=== PATIENT | female | born 1935 | race Caucasian/White ===

== ENCOUNTER 2017-10-02 19:42 | Inpatient (IN) | payer MEDICARE, OTHER ==
[2017-10-02] MEDS: morphine 2 MG INJ IV (21:45)
[2017-10-02 21:47] LABS: ABNORMAL IP MESSAGE 1; HEMATOCRIT 21.5 % (37.0-47.0); MEAN CORPUSCULAR HEMOGLOBIN 19.9 pg (29.0-33.0); MEAN CORPUSCULAR HGB CONC 27.4 g/dl (32.0-37.0); MEAN CORPUSCULAR VOLUME 72.6 fl (82.0-101.0); MEAN PLATELET VOLUME 9.2 fl (7.4-10.4); PLATELET COUNT 477 10^3/UL (140-415); RED BLOOD COUNT 2.96 10^6/ul (4.20-5.40); RED CELL DISTRIBUTION WIDTH 17.3 % (11.5-14.5)
[2017-10-02 21:47] LABS: WHITE BLOOD COUNT 6.8 10^3/ul (4.8-10.8)
[2017-10-02 21:49] LABS: ADD UMIC NO; UR ASCORBIC ACID NEGATIVE (NEGATIVE); UR BILIRUBIN (Dip) NEGATIVE (NEGATIVE); UR BLOOD (Dip) NEGATIVE (NEGATIVE); UR CLARITY CLEAR (CLEAR); UR COLOR STRAW (YELLOW); UR GLUCOSE (Dip) NEGATIVE (NEGATIVE); UR KETONES (Dip) NEGATIVE (NEGATIVE); UR LEUKOCYTE ESTERASE (Dip) NEGATIVE Leu/ul (NEGATIVE); UR NITRITE (Dip) NEGATIVE (NEGATIVE); UR SPECIFIC GRAVITY (Dip) 1.005 (1.003-1.030); UR TOTAL PROTEIN (Dip) NEGATIVE (NEGATIVE); UR UROBILINOGEN (Dip) NEGATIVE (NEGATIVE)
[2017-10-02 21:51] LABS: ADD MAN DIFF? YES; HEMOGLOBIN 5.9 g/dl (12.0-16.0); POSITIVE DIFF @See below
[2017-10-02 22:04] LABS: ALANINE AMINOTRANSFERASE 25 IU/L (13-69); ALBUMIN 3.9 g/dl (3.3-4.9); ALBUMIN/GLOBULIN RATIO 1.34; ALKALINE PHOSPHATASE 68 IU/L (42-121); ANION GAP 12 (8-16); ASPARTATE AMINO TRANSFERASE 26 IU/L (15-46); BILIRUBIN,INDIRECT 0.2 mg/dl (0-1.1); BILIRUBIN,TOTAL 0.2 mg/dl (0.2-1.3); BLOOD UREA NITROGEN 30 mg/dl (7-20); CALCIUM 8.9 mg/dl (8.4-10.2); CARBON DIOXIDE 30 mmol/L (21-31); CHLORIDE 98 mmol/L (97-110); CREATININE 1.16 mg/dl (0.44-1.00); GLUCOSE 94 mg/dl (70-220); SODIUM 137 mmol/L (135-144); TOTAL PROTEIN 6.8 g/dl (6.1-8.1)
[2017-10-02 22:05] LABS: POTASSIUM 2.7 mmol/L (3.5-5.1)
[2017-10-02 22:16] LABS: TROPONIN-I 0.027 ng/ml (0.000-0.120)
[2017-10-02] MEDS ORDERED: NACL 0.9% 3 ML SYG IV (22:30)
[2017-10-02] MEDS ORDERED: ONDANSETRON 4 MG INJ IV ×2 (22:30)
[2017-10-02] MEDS ORDERED: ACETAMINOPHEN 325 MG TAB PO (22:30)
[2017-10-02] MEDS ORDERED: DOCUSATE SODIUM 100 MG CAP PO (22:30)
[2017-10-02] MEDS: MAGNESIUM SULFATE 2 GM/50 ML 50 ML IVPB (22:31)
[2017-10-02] MEDS: POTASSIUM CHLORIDE 100 ML IVPB (22:59)
[2017-10-02 23:07] LABS: ANISOCYTOSIS 1+ (0-0); BASOPHIL #M 0.2 10^3/ul (0.0-0.0); BASOPHILS % (M) 3 % (0-2); EOSINOPHILS % (M) 2 % (0-7); ERYTHROBLAST% (NRBC) (M) 1 % (0-0); GIANT THROMBO% (M) 1 % (0-0); HYPOCHROMASIA 2+ (0-0); LYMPHOCYTES #M 1.3 10^3/ul (0.8-2.9); LYMPHOCYTES % (M) 20 % (15-51); MICROCYTOSIS 1+ (0-0); MONOCYTE #M 0.4 10^3/ul (0.3-0.9); MONOCYTES % (M) 6 % (0-11); PLATELET ESTIMATE NORMAL; SEGMENTED NEUTROPHILS (M) % 69 % (39-77); SMUDGE%M 1 % (0-0)
[2017-10-02 23:40] LABS: CREATINE KINASE 271 IU/L (23-200); IRON 31 ug/dl (35-150)
[2017-10-02 23:50] LABS: % IRON SATURATION 9 % SAT (22-52); TOTAL IRON BINDING CAPACITY 364 ug/dl (241-421)
[2017-10-02 23:53] LABS: CK INDEX 2.1; TROPONIN-I 0.029 ng/ml (0.000-0.120)
[2017-10-03] MEDS: SOD CHLORIDE 0.9% 250 ML IV (00:25)
[2017-10-03 00:28] LABS: OSMOLALITY 289 mOsm/kg (280-295)
[2017-10-03] MEDS: HYDROCODONE/APAP (5/325) TAB PO ×2 (00:34→15:41)
[2017-10-03] MEDS: POTASSIUM CHLORIDE 100 ML IVPB ×2 (00:36→02:31)
[2017-10-03 01:41] LABS: IMMEDIATE SPIN CROSSMATCH 1 2
[2017-10-03 05:33] LABS: ADD MAN DIFF? NO; BASOPHIL # 0.1 10^3/ul (0.0-0.1); BASOPHILS % 0.8 % (0.0-2.0); EOSINOPHILS # 0.2 10^3/ul (0.0-0.5); EOSINOPHILS % 3.7 % (0.0-7.0); HEMATOCRIT 29.9 % (37.0-47.0); HEMOGLOBIN 9.2 g/dl (12.0-16.0); LYMPHOCYTES % 16.4 % (15.0-51.0); MEAN CORPUSCULAR HEMOGLOBIN 23.7 pg (29.0-33.0); MEAN CORPUSCULAR HGB CONC 30.8 g/dl (32.0-37.0); MEAN CORPUSCULAR VOLUME 76.9 fl (82.0-101.0); MEAN PLATELET VOLUME 9.4 fl (7.4-10.4); MONOCYTE # 0.6 10^3/ul (0.3-0.9); MONOCYTES % 10.5 % (0.0-11.0); NEUTROPHIL # 4.1 10^3/ul (1.6-7.5); NEUTROPHILS % 68.4 % (39.0-77.0); PLATELET COUNT 405 10^3/UL (140-415); RED BLOOD COUNT 3.89 10^6/ul (4.20-5.40); RED CELL DISTRIBUTION WIDTH 18.3 % (11.5-14.5)
[2017-10-03 05:52] LABS: CREATINE KINASE 268 IU/L (23-200)
[2017-10-03 06:02] LABS: ALANINE AMINOTRANSFERASE 20 IU/L (13-69); ALKALINE PHOSPHATASE 57 IU/L (42-121); ANION GAP 9 (8-16); ASPARTATE AMINO TRANSFERASE 22 IU/L (15-46); BLOOD UREA NITROGEN 24 mg/dl (7-20); CALCIUM 7.9 mg/dl (8.4-10.2); CARBON DIOXIDE 28 mmol/L (21-31); CHLORIDE 108 mmol/L (97-110); CHOL/HDL RATIO 2.3 RATIO; CHOLESTEROL 156 mg/dl (100-200); CREATININE 0.93 mg/dl (0.44-1.00); GLUCOSE 93 mg/dl (70-220); HDL CHOLESTEROL 67 mg/dl (33-92); LDL CHOLESTEROL,CALCULATED 75 mg/dl; MAGNESIUM 1.8 mg/dl (1.7-2.5); POTASSIUM 3.6 mmol/L (3.5-5.1); SODIUM 141 mmol/L (135-144); TOTAL PROTEIN 5.3 g/dl (6.1-8.1); TRIGLYCERIDES 68 mg/dl (0-149)
[2017-10-03 06:05] LABS: CK INDEX 1.9; CK-MB 5.13 ng/ml (0.0-2.4); TROPONIN-I 0.036 ng/ml (0.000-0.120)
[2017-10-03 08:25] LABS: HEMOGLOBIN A1C 5.9 % (0-5.9)
[2017-10-03] MEDS: DULOXETINE 30 MG CAP DR PO ×2 (09:39→20:36)
[2017-10-03 11:35] LABS: ADD UMIC YES; UR ASCORBIC ACID NEGATIVE (NEGATIVE); UR BACTERIA FEW /HPF (NONE SEEN); UR BILIRUBIN (Dip) NEGATIVE (NEGATIVE); UR BLOOD (Dip) 1+ mg/dL (NEGATIVE); UR CLARITY CLEAR (CLEAR); UR COLOR STRAW (YELLOW); UR GLUCOSE (Dip) NEGATIVE (NEGATIVE); UR KETONES (Dip) NEGATIVE (NEGATIVE); UR LEUKOCYTE ESTERASE (Dip) NEGATIVE Leu/ul (NEGATIVE); UR NITRITE (Dip) NEGATIVE (NEGATIVE); UR RBC 0 /HPF (0-5); UR SPECIFIC GRAVITY (Dip) 1.008 (1.003-1.030); UR TOTAL PROTEIN (Dip) NEGATIVE (NEGATIVE); UR UROBILINOGEN (Dip) NEGATIVE (NEGATIVE); UR WBC 1 /HPF (0-5)
[2017-10-03 11:49] LABS: SODIUM,URINE RANDOM 78 mmol/L (30-90)
[2017-10-03] MEDS: LACTULOSE 30ML CUP PO ×5 (12:31→23:17)
[2017-10-03 14:54] LABS: OSMOLALITY,URINE 317 mOsm/kg (250-1200)
[2017-10-03 16:21] LABS: OCCULT BLOOD STOOL NEGATIVE (NEGATIVE)
[2017-10-03] MEDS: SOD FERRIC GLUC COMPLX 125 MG in SOD CHLORIDE 0.9% 100 ML IVPB (17:19)
[2017-10-03] MEDS: PANTOPRAZOLE 40 MG INJ IV (17:20)
[2017-10-03] MEDS: ACETAMINOPHEN 325 MG TAB PO (20:36)
[2017-10-03] MEDS: PEG/ELECTROLYTES 4L BTL PO (21:19)
[2017-10-04] MEDS: HYDROCODONE/APAP (5/325) TAB PO ×3 (00:29→20:21)
[2017-10-04] MEDS: LACTULOSE 30ML CUP PO ×7 (03:00→20:21)
[2017-10-04] MEDS: PANTOPRAZOLE 40 MG INJ IV ×2 (06:44→18:18)
[2017-10-04] MEDS: DULOXETINE 30 MG CAP DR PO ×2 (08:36→20:20)
[2017-10-04 09:31] LABS: ADD MAN DIFF? NO
[2017-10-04 09:35] LABS: ABNORMAL IP MESSAGE 1; BASOPHIL # 0.1 10^3/ul (0.0-0.1); BASOPHILS % 0.6 % (0.0-2.0); EOSINOPHILS # 0.1 10^3/ul (0.0-0.5); EOSINOPHILS % 0.6 % (0.0-7.0); HEMATOCRIT 32.3 % (37.0-47.0); HEMOGLOBIN 9.4 g/dl (12.0-16.0); LYMPHOCYTES # 0.5 10^3/ul (0.8-2.9); LYMPHOCYTES % 5.5 % (15.0-51.0); MEAN CORPUSCULAR HGB CONC 29.1 g/dl (32.0-37.0); MEAN CORPUSCULAR VOLUME 79.2 fl (82.0-101.0); MEAN PLATELET VOLUME 9.7 fl (7.4-10.4); MONOCYTE # 0.7 10^3/ul (0.3-0.9); MONOCYTES % 6.9 % (0.0-11.0); NEUTROPHIL # 8.4 10^3/ul (1.6-7.5); PLATELET COUNT 453 10^3/UL (140-415); RED BLOOD COUNT 4.08 10^6/ul (4.20-5.40); RED CELL DISTRIBUTION WIDTH 18.6 % (11.5-14.5)
[2017-10-04 09:35] LABS: WHITE BLOOD COUNT 9.7 10^3/ul (4.8-10.8)
[2017-10-04 09:40] LABS: POSITIVE DIFF @See below
[2017-10-04 09:54] LABS: ANION GAP 10 (8-16); BLOOD UREA NITROGEN 10 mg/dl (7-20); CALCIUM 8.2 mg/dl (8.4-10.2); CARBON DIOXIDE 27 mmol/L (21-31); CHLORIDE 112 mmol/L (97-110); CREATININE 0.73 mg/dl (0.44-1.00); GLUCOSE 144 mg/dl (70-220); SODIUM 146 mmol/L (135-144)
[2017-10-04] MEDS: LORAZEPAM 2 MG INJ IV (11:15)
[2017-10-04] MEDS ORDERED: POTASSIUM CHLORIDE 100 ML IVPB (11:30)
[2017-10-04] MEDS: POTASSIUM CHLORIDE 100 ML IVPB ×2 (12:30→15:54)
[2017-10-04] MEDS ORDERED: GLUCOSE GEL 15 GRAM TUBE PO ×2 (13:00)
[2017-10-04] MEDS ORDERED: GLUCAGON 1 MG INJ IM (13:00)
[2017-10-04] MEDS ORDERED: GLUCOSE GEL 15 GRAM TUBE BUCCAL (13:00)
[2017-10-04] MEDS: ETOMIDATE 20 MG INJ (14:23)
[2017-10-04] MEDS: PHENYLephrine (100 MCG/ML) 5ML SYG (14:23)
[2017-10-04 16:15] LABS: INR 1.08; PROTIME 14.1 Sec (11.9-14.9); PT RATIO 1.1
[2017-10-04 16:16] LABS: PARTIAL THROMBOPLASTIN TIME 43.4 Sec (25.0-35.0)
[2017-10-04] MEDS: SOD FERRIC GLUC COMPLX 125 MG in SOD CHLORIDE 0.9% 100 ML IVPB (17:00)
[2017-10-04] MEDS: INSULIN ASPART [NOVOLOG] 3 ML PEN SC ×2 (18:05→20:31)
[2017-10-04] MEDS: ALBUTEROL 0.083% (NEB) 2.5 MG/3 ML AMP HHN (18:35)
[2017-10-04] MEDS: ALPRAZOLAM 0.25 MG TAB PO (21:25)
[2017-10-04] MEDS: ACETAMINOPHEN 325 MG TAB PO (23:06)
[2017-10-05] MEDS: ACCU-CHEK XX ×2 (02:00→02:15)
[2017-10-05] MEDS: HYDROCODONE/APAP (5/325) TAB PO ×2 (02:07→10:24)
[2017-10-05] MEDS: ALBUTEROL 0.083% (NEB) 2.5 MG/3 ML AMP HHN ×3 (02:22→09:25)
[2017-10-05] MEDS: LACTULOSE 30ML CUP PO ×8 (02:38→21:54)
[2017-10-05] MEDS: PANTOPRAZOLE 40 MG INJ IV (06:04)
[2017-10-05] MEDS: INSULIN ASPART [NOVOLOG] 3 ML PEN SC ×4 (08:00→22:14)
[2017-10-05] MEDS: DULOXETINE 30 MG CAP DR PO ×2 (08:43→21:55)
[2017-10-05 09:48] LABS: ADD MAN DIFF? NO
[2017-10-05 09:53] LABS: WHITE BLOOD COUNT 10.2 10^3/ul (4.8-10.8)
[2017-10-05 09:53] LABS: ABNORMAL IP MESSAGE 1; BASOPHILS % 0.4 % (0.0-2.0); EOSINOPHILS % 0.3 % (0.0-7.0); HEMATOCRIT 29.1 % (37.0-47.0); HEMOGLOBIN 8.6 g/dl (12.0-16.0); LYMPHOCYTES # 0.4 10^3/ul (0.8-2.9); LYMPHOCYTES % 4.1 % (15.0-51.0); MEAN CORPUSCULAR HEMOGLOBIN 23.7 pg (29.0-33.0); MEAN CORPUSCULAR HGB CONC 29.6 g/dl (32.0-37.0); MEAN CORPUSCULAR VOLUME 80.2 fl (82.0-101.0); MEAN PLATELET VOLUME 9.6 fl (7.4-10.4); MONOCYTE # 0.7 10^3/ul (0.3-0.9); MONOCYTES % 7.3 % (0.0-11.0); NEUTROPHIL # 8.9 10^3/ul (1.6-7.5); NEUTROPHILS % 87.4 % (39.0-77.0); PLATELET COUNT 400 10^3/UL (140-415); RED BLOOD COUNT 3.63 10^6/ul (4.20-5.40); RED CELL DISTRIBUTION WIDTH 19.2 % (11.5-14.5)
[2017-10-05 10:03] LABS: POSITIVE DIFF @See below
[2017-10-05 10:14] LABS: ANION GAP 11 (8-16); BLOOD UREA NITROGEN 7 mg/dl (7-20); CARBON DIOXIDE 28 mmol/L (21-31); CHLORIDE 105 mmol/L (97-110); CREATININE 0.62 mg/dl (0.44-1.00); SODIUM 141 mmol/L (135-144)
[2017-10-05 10:16] LABS: MAGNESIUM 1.5 mg/dl (1.7-2.5)
[2017-10-05 10:30] LABS: GLUCOSE 135 mg/dl (70-220); POTASSIUM 2.9 mmol/L (3.5-5.1)
[2017-10-05] MEDS: ALBUTEROL/IPRATROPIUM (NEB) 3 ML AMP HHN ×4 (10:59→21:09)
[2017-10-05] MEDS ORDERED: MAGNESIUM SULFATE 3 GM in DEXTROSE 5% 100 ML IVPB (11:00)
[2017-10-05 11:44] LABS: AADO2 Arterial 110.4 mmHg (7.0-24.0); Allen Test ACCEPTAB; Arterial Blood Gas Oxygen Sat 96.3 mmHG (95.0-100.0); Arterial COHb 0.5 % (0.0-3.0); Arterial Fraction of Oxyhgb 95.8 % (93.0-99.0); Arterial HCO3 20.4 mmol/L (22.0-26.0); Arterial MetHb 0 % (0.0-1.5); Arterial Total Hemglobin 10.3 g/dl (12.0-18.0); MODE NASAL CANNULA; Site Left Radial
[2017-10-05] MEDS: POTASSIUM CHLORIDE (SR) 20 MEQ TAB PO ×2 (11:45→15:13)
[2017-10-05] MEDS: MAG SULFATE 2GM IN 50 ML IVPB (11:46)
[2017-10-05] MEDS: METHYLPREDNISOLONE 125 MG INJ IV (12:08)
[2017-10-05] MEDS: LEVOFLOXACIN 500 MG TAB PO (12:08)
[2017-10-05] MEDS: SOD CHLORIDE 0.9% 100 ML (13:51)
[2017-10-05] MEDS: IOHEXOL 300MG/ML 150 ML BTL (13:51)
[2017-10-05 14:30] LABS: C-REACTIVE PROTEIN 8.2 mg/dl (0.0-0.9)
[2017-10-05] MEDS: MAGNESIUM SULFATE 1 GM/D5W 100 ML IVPB (15:13)
[2017-10-05 15:24] LABS: ERYTHROCYTE SEDIMENTATION RATE 30 mm/Hr (0-30)
[2017-10-05] MEDS: SOD FERRIC GLUC COMPLX 125 MG in SOD CHLORIDE 0.9% 100 ML IVPB (17:39)
[2017-10-05] MEDS: PANTOPRAZOLE (EC) 40 MG TAB PO (17:39)
[2017-10-05] MEDS: traZODone 50 MG TAB PO (21:55)
[2017-10-06] MEDS: ALBUTEROL/IPRATROPIUM (NEB) 3 ML AMP HHN ×5 (00:56→17:08)
[2017-10-06] MEDS: ACCU-CHEK XX (01:55)
[2017-10-06] MEDS: LACTULOSE 30ML CUP PO ×8 (03:00→21:00)
[2017-10-06] MEDS: PANTOPRAZOLE (EC) 40 MG TAB PO ×2 (06:17→17:24)
[2017-10-06] MEDS ORDERED: ETOMIDATE 20 MG INJ (07:00)
[2017-10-06] MEDS ORDERED: SUCCINYLCHOLINE CHLORIDE 100 MG/5 ML SYG IV (07:00)
[2017-10-06] MEDS ORDERED: ROCURONIUM 50 MG INJ (07:00)
[2017-10-06 07:49] LABS: ANION GAP 11 (8-16); BLOOD UREA NITROGEN 11 mg/dl (7-20); CALCIUM 8.6 mg/dl (8.4-10.2); CARBON DIOXIDE 24 mmol/L (21-31); CHLORIDE 111 mmol/L (97-110); CREATININE 0.71 mg/dl (0.44-1.00); GLUCOSE 131 mg/dl (70-220); MAGNESIUM 2.5 mg/dl (1.7-2.5); POTASSIUM 3.5 mmol/L (3.5-5.1); SODIUM 142 mmol/L (135-144)
[2017-10-06] MEDS: INSULIN ASPART [NOVOLOG] 3 ML PEN SC ×4 (08:00→21:00)
[2017-10-06] MEDS: DULOXETINE 30 MG CAP DR PO ×2 (08:34→21:00)
[2017-10-06] MEDS: INSULIN GLARGINE [LANtus] 3 ML PEN SC (12:31)
[2017-10-06] MEDS: HYDROCODONE/APAP (5/325) TAB PO (12:36)
[2017-10-06] MEDS: morphine 2 MG INJ IV (13:37)
[2017-10-06] MEDS: DILTIAZEM (CD) 120 MG CAP PO (13:38)
[2017-10-06] MEDS ORDERED: morphine 2 MG INJ IV (14:00)
[2017-10-06 14:39] LABS: ADD MAN DIFF? NO
[2017-10-06 14:43] LABS: ABNORMAL IP MESSAGE 1; BASOPHILS % 0.2 % (0.0-2.0); EOSINOPHILS # 0.1 10^3/ul (0.0-0.5); EOSINOPHILS % 0.6 % (0.0-7.0); HEMATOCRIT 30.5 % (37.0-47.0); HEMOGLOBIN 8.8 g/dl (12.0-16.0); LYMPHOCYTES # 0.3 10^3/ul (0.8-2.9); MEAN CORPUSCULAR HEMOGLOBIN 23.5 pg (29.0-33.0); MEAN CORPUSCULAR HGB CONC 28.9 g/dl (32.0-37.0); MEAN CORPUSCULAR VOLUME 81.3 fl (82.0-101.0); MEAN PLATELET VOLUME 9.2 fl (7.4-10.4); MONOCYTE # 0.6 10^3/ul (0.3-0.9); MONOCYTES % 5.5 % (0.0-11.0); NEUTROPHIL # 9.8 10^3/ul (1.6-7.5); NEUTROPHILS % 90.2 % (39.0-77.0); NUCLEATED RED BLOOD CELLS% 0.2 /100WBC (0.0-0.0); PLATELET COUNT 391 10^3/UL (140-415); RED BLOOD COUNT 3.75 10^6/ul (4.20-5.40); RED CELL DISTRIBUTION WIDTH 21.2 % (11.5-14.5)
[2017-10-06 14:43] LABS: WHITE BLOOD COUNT 10.8 10^3/ul (4.8-10.8)
[2017-10-06 15:00] LABS: ANION GAP 12 (8-16); BLOOD UREA NITROGEN 10 mg/dl (7-20); CALCIUM 8.7 mg/dl (8.4-10.2); CARBON DIOXIDE 24 mmol/L (21-31); CHLORIDE 109 mmol/L (97-110); CREATININE 0.76 mg/dl (0.44-1.00); GLUCOSE 91 mg/dl (70-220); POTASSIUM 3.7 mmol/L (3.5-5.1); SODIUM 141 mmol/L (135-144)
[2017-10-06 15:04] LABS: LIPASE 94 U/L (23-300)
[2017-10-06] MEDS: SOD CHLORIDE 0.9% 500 ML IV (15:31)
[2017-10-06] MEDS: IOHEXOL 300MG/ML 150 ML BTL (16:11)
[2017-10-06] MEDS: SOD CHLORIDE 0.9% 100 ML (16:11)
[2017-10-06] MEDS: SOD FERRIC GLUC COMPLX 125 MG in SOD CHLORIDE 0.9% 100 ML IVPB (17:05)
[2017-10-06] MEDS: NA PHOSPHATE/BIPHOS 133 ML ENEMA PR (17:24)
[2017-10-06] MEDS: FUROSEMIDE 20 MG INJ IV ×3 (17:24→19:00)
[2017-10-06] MEDS: DEXTROSE 50% 50 ML SYRINGE IV (17:39)
[2017-10-06] MEDS ORDERED: METOPROLOL 5 MG INJ (17:52)
[2017-10-06] MEDS: METOPROLOL 5 MG INJ IV (17:55)
[2017-10-06] MEDS: LORAZEPAM 2 MG INJ IV (18:31)
[2017-10-06] MEDS: LEVALBUTEROL (NEB) 0.63 MG/3 ML AMP HHN (18:55)
[2017-10-06] MEDS ORDERED: PROPOFOL 100 ML (19:47)
[2017-10-06] MEDS: PROPOFOL 100 ML IV (20:02)
[2017-10-06 20:45] LABS: AADO2 Arterial 291.1 mmHg (7.0-24.0); Allen Test ACCEPTAB; Arterial Base Excess -5.3 mmol/L (-3.0-3); Arterial Blood Gas Oxygen Sat 99.8 mmHG (95.0-100.0); Arterial COHb 0.6 % (0.0-3.0); Arterial Fraction of Oxyhgb 99.1 % (93.0-99.0); Arterial HCO3 20.2 mmol/L (22.0-26.0); Arterial MetHb 0.1 % (0.0-1.5); Arterial Total Hemglobin 9.5 g/dl (12.0-18.0); Arterial pCO2 39.7 mmhg (35-45); MODE VENT - AC; Site Right Radial
[2017-10-06] MEDS: traZODone 50 MG TAB PO (21:00)
[2017-10-06] MEDS: SENNA TAB PO (21:00)
[2017-10-06] MEDS: ALBUTEROL HFA 8 GM INHALER INH (21:09)
[2017-10-06] MEDS: FENTAnyl (DRIP) 1000 mcg/100mL 100 ML IV (22:14)
[2017-10-06] MEDS: PANTOPRAZOLE 40 MG INJ IV (23:39)
[2017-10-07] MEDS: PROPOFOL 100 ML IV ×4 (01:42→22:13)
[2017-10-07] MEDS: ALBUTEROL HFA 8 GM INHALER INH ×6 (02:00→21:26)
[2017-10-07] MEDS: ACCU-CHEK XX (02:12)
[2017-10-07] MEDS: LACTULOSE 30ML CUP PO ×8 (03:00→20:35)
[2017-10-07 05:25] LABS: ADD MAN DIFF? NO
[2017-10-07 05:31] LABS: WHITE BLOOD COUNT 9.6 10^3/ul (4.8-10.8)
[2017-10-07 05:31] LABS: ABNORMAL IP MESSAGE 1; BASOPHILS % 0.2 % (0.0-2.0); EOSINOPHILS # 0.1 10^3/ul (0.0-0.5); EOSINOPHILS % 1.5 % (0.0-7.0); HEMATOCRIT 28.4 % (37.0-47.0); HEMOGLOBIN 8.2 g/dl (12.0-16.0); LYMPHOCYTES # 0.5 10^3/ul (0.8-2.9); MEAN CORPUSCULAR HEMOGLOBIN 23.2 pg (29.0-33.0); MEAN CORPUSCULAR HGB CONC 28.9 g/dl (32.0-37.0); MEAN CORPUSCULAR VOLUME 80.5 fl (82.0-101.0); MEAN PLATELET VOLUME 9.7 fl (7.4-10.4); MONOCYTE # 0.5 10^3/ul (0.3-0.9); MONOCYTES % 4.8 % (0.0-11.0); NEUTROPHIL # 8.4 10^3/ul (1.6-7.5); PLATELET COUNT 383 10^3/UL (140-415); RED BLOOD COUNT 3.53 10^6/ul (4.20-5.40); RED CELL DISTRIBUTION WIDTH 21.8 % (11.5-14.5)
[2017-10-07 05:40] LABS: POSITIVE DIFF @See below
[2017-10-07] MEDS: LEVOFLOXACIN 500 MG TAB PO (06:00)
[2017-10-07 06:02] LABS: ANION GAP 9 (8-16); BLOOD UREA NITROGEN 10 mg/dl (7-20); CALCIUM 8.1 mg/dl (8.4-10.2); CARBON DIOXIDE 27 mmol/L (21-31); CHLORIDE 109 mmol/L (97-110); CREATININE 0.78 mg/dl (0.44-1.00); GLUCOSE 80 mg/dl (70-220); POTASSIUM 3.3 mmol/L (3.5-5.1); SODIUM 142 mmol/L (135-144)
[2017-10-07] MEDS: PANTOPRAZOLE 40 MG INJ IV (06:04)
[2017-10-07] MEDS: INSULIN ASPART [NOVOLOG] 3 ML PEN SC ×4 (07:35→20:37)
[2017-10-07] MEDS ORDERED: POTASSIUM CHLORIDE 20 MEQ POWDER FOR ORAL SOLN PO (09:00)
[2017-10-07] MEDS: SENNA TAB PO ×2 (09:36→20:35)
[2017-10-07] MEDS: DULOXETINE 30 MG CAP DR PO ×2 (09:37→20:34)
[2017-10-07] MEDS: DILTIAZEM (CD) 120 MG CAP PO (09:37)
[2017-10-07] MEDS: METOCLOPRAMIDE 5 MG TAB PO (09:37)
[2017-10-07] MEDS: INSULIN GLARGINE [LANtus] 3 ML PEN SC (10:00)
[2017-10-07] MEDS: FENTAnyl (DRIP) 1000 mcg/100mL 100 ML IV (16:02)
[2017-10-07] MEDS: SOD FERRIC GLUC COMPLX 125 MG in SOD CHLORIDE 0.9% 100 ML IVPB (17:57)
[2017-10-07] MEDS: DEXTROSE 50% 50 ML SYRINGE IV (18:07)
[2017-10-07] MEDS: traZODone 50 MG TAB PO (20:35)
[2017-10-07] MEDS ORDERED: morphine LIQ (10 MG/5 ML) CUP PO (21:30)
[2017-10-07] MEDS: DEXTROSE 5%-0.45% NACL 1,000 ML IV (22:13)
[2017-10-08] MEDS: ALBUTEROL HFA 8 GM INHALER INH ×5 (01:34→12:52)
[2017-10-08] MEDS: DEXTROSE 50% 50 ML SYRINGE IV ×4 (01:56→20:48)
[2017-10-08] MEDS: ACCU-CHEK XX (01:56)
[2017-10-08] MEDS: LACTULOSE 30ML CUP PO ×5 (02:49→12:19)
[2017-10-08] MEDS: INSULIN ASPART [NOVOLOG] 3 ML PEN SC ×5 (05:00→20:41)
[2017-10-08 05:03] LABS: AADO2 Arterial 77.9 mmHg (7.0-24.0); Allen Test ACCEPTAB; Arterial Base Excess -0.6 mmol/L (-3.0-3); Arterial Blood Gas Oxygen Sat 97.9 mmHG (95.0-100.0); Arterial COHb 1.6 % (0.0-3.0); Arterial Fraction of Oxyhgb 96.2 % (93.0-99.0); Arterial HCO3 23.1 mmol/L (22.0-26.0); Arterial MetHb 0.1 % (0.0-1.5); Arterial Total Hemglobin 7.7 g/dl (12.0-18.0); Arterial pCO2 33.7 mmhg (35-45); MODE VENT - AC; Site Right Radial
[2017-10-08 05:18] LABS: ADD MAN DIFF? NO
[2017-10-08 05:22] LABS: WHITE BLOOD COUNT 5.8 10^3/ul (4.8-10.8)
[2017-10-08 05:22] LABS: ABNORMAL IP MESSAGE 1; BASOPHILS % 0.3 % (0.0-2.0); EOSINOPHILS # 0.2 10^3/ul (0.0-0.5); HEMATOCRIT 28.6 % (37.0-47.0); HEMOGLOBIN 8.3 g/dl (12.0-16.0); LYMPHOCYTES # 0.4 10^3/ul (0.8-2.9); LYMPHOCYTES % 7.1 % (15.0-51.0); MEAN CORPUSCULAR HEMOGLOBIN 23.2 pg (29.0-33.0); MEAN CORPUSCULAR VOLUME 79.9 fl (82.0-101.0); MEAN PLATELET VOLUME 9.8 fl (7.4-10.4); MONOCYTE # 0.3 10^3/ul (0.3-0.9); MONOCYTES % 5.4 % (0.0-11.0); NEUTROPHIL # 4.8 10^3/ul (1.6-7.5); NEUTROPHILS % 83.9 % (39.0-77.0); PLATELET COUNT 353 10^3/UL (140-415); RED BLOOD COUNT 3.58 10^6/ul (4.20-5.40); RED CELL DISTRIBUTION WIDTH 22.5 % (11.5-14.5)
[2017-10-08 05:29] LABS: POSITIVE DIFF @See below
[2017-10-08 05:43] LABS: LACTIC ACID 0.9 mmol/L (0.5-2.0)
[2017-10-08 05:47] LABS: ALANINE AMINOTRANSFERASE 30 IU/L (13-69); ALBUMIN 2.6 g/dl (3.3-4.9); ALBUMIN/GLOBULIN RATIO 1.04; ALKALINE PHOSPHATASE 64 IU/L (42-121); ANION GAP 5 (8-16); ASPARTATE AMINO TRANSFERASE 19 IU/L (15-46); BILIRUBIN,INDIRECT 0.1 mg/dl (0-1.1); BILIRUBIN,TOTAL 0.1 mg/dl (0.2-1.3); BLOOD UREA NITROGEN 10 mg/dl (7-20); CALCIUM 7.8 mg/dl (8.4-10.2); CARBON DIOXIDE 25 mmol/L (21-31); CHLORIDE 114 mmol/L (97-110); CREATININE 0.74 mg/dl (0.44-1.00); GLUCOSE 107 mg/dl (70-220); POTASSIUM 3.3 mmol/L (3.5-5.1); SODIUM 141 mmol/L (135-144); TOTAL PROTEIN 5.1 g/dl (6.1-8.1)
[2017-10-08] MEDS: PANTOPRAZOLE 40 MG INJ IV (05:56)
[2017-10-08 06:03] LABS: FREE THYROXINE INDEX (Calc) 2.75 ug/ml (0.65-3.89); T3 UPTAKE 39.9 % (23.5-40.5); T4 (THYROXINE) 6.9 ug/dl (5.5-11.0)
[2017-10-08 06:04] LABS: PHOSPHORUS 1.8 mg/dl (2.5-4.9)
[2017-10-08 06:04] LABS: MAGNESIUM 1.9 mg/dl (1.7-2.5)
[2017-10-08] MEDS: METOCLOPRAMIDE 5 MG TAB PO (06:05)
[2017-10-08] MEDS: PROPOFOL 100 ML IV (06:13)
[2017-10-08] MEDS: DULOXETINE 30 MG CAP DR PO ×2 (08:35→20:41)
[2017-10-08] MEDS: DILTIAZEM (CD) 120 MG CAP PO (08:37)
[2017-10-08] MEDS: SENNA TAB PO ×2 (08:38→20:41)
[2017-10-08] MEDS: INSULIN GLARGINE [LANtus] 3 ML PEN SC (08:48)
[2017-10-08] MEDS: POTASSIUM PHOSPHATE 20 MEQ in SOD CHLORIDE 0.9% 250 ML IVPB (09:24)
[2017-10-08] MEDS: POTASSIUM CHLORIDE 20 MEQ POWDER FOR ORAL SOLN PO (09:24)
[2017-10-08] MEDS: LIDOCAINE 1% (MDV) 10 ML INJ (10:28)
[2017-10-08 11:25] LABS: FLUID GLUCOSE 95 mg/dl; FLUID TYPE THORACENTESIS FLUID
[2017-10-08 11:36] LABS: FLD TYPE THORACENTHESIS
[2017-10-08 11:36] LABS: FLD CLARITY SLIGHTLY HAZY; FLD COLOR YELLOW
[2017-10-08 11:37] LABS: FLD RBC 0 /uL
[2017-10-08 12:04] LABS: FLD WBC 237 /cmm
[2017-10-08] MEDS: FUROSEMIDE 20 MG INJ IV (12:19)
[2017-10-08] MEDS: ALBUTEROL 0.083% (NEB) 2.5 MG/3 ML AMP HHN ×2 (17:00→20:15)
[2017-10-08] MEDS: traZODone 50 MG TAB PO (20:40)
[2017-10-08] MEDS: DEXTROSE 5%-0.45% NACL 1,000 ML IV (22:00)
[2017-10-08 23:25] LABS: FLUID AMYLASE < 30 U/L; FLUID TOTAL PROTEIN 2.4 g/dl; FLUID TYPE THORACENTESIS FLUID
[2017-10-09] MEDS: INSULIN ASPART [NOVOLOG] 3 ML PEN SC ×6 (00:44→20:32)
[2017-10-09] MEDS: ALBUTEROL 0.083% (NEB) 2.5 MG/3 ML AMP HHN ×6 (01:00→21:27)
[2017-10-09] MEDS: DEXTROSE 5%-0.45% NACL 1,000 ML IV (02:12)
[2017-10-09 05:29] LABS: ADD MAN DIFF? NO
[2017-10-09 05:45] LABS: ABNORMAL IP MESSAGE 1; BASOPHILS % 0.5 % (0.0-2.0); EOSINOPHILS # 0.1 10^3/ul (0.0-0.5); EOSINOPHILS % 2.2 % (0.0-7.0); HEMATOCRIT 30.1 % (37.0-47.0); HEMOGLOBIN 8.7 g/dl (12.0-16.0); LYMPHOCYTES # 0.7 10^3/ul (0.8-2.9); LYMPHOCYTES % 11.5 % (15.0-51.0); MEAN CORPUSCULAR HEMOGLOBIN 23.6 pg (29.0-33.0); MEAN CORPUSCULAR HGB CONC 28.9 g/dl (32.0-37.0); MEAN CORPUSCULAR VOLUME 81.6 fl (82.0-101.0); MONOCYTE # 0.5 10^3/ul (0.3-0.9); NEUTROPHIL # 4.6 10^3/ul (1.6-7.5); NEUTROPHILS % 77.1 % (39.0-77.0); PLATELET COUNT 366 10^3/UL (140-415); RED BLOOD COUNT 3.69 10^6/ul (4.20-5.40); RED CELL DISTRIBUTION WIDTH 23.2 % (11.5-14.5)
[2017-10-09 05:48] LABS: POSITIVE DIFF @See below
[2017-10-09 05:57] LABS: ANION GAP 8 (8-16); BLOOD UREA NITROGEN 7 mg/dl (7-20); CALCIUM 7.8 mg/dl (8.4-10.2); CARBON DIOXIDE 26 mmol/L (21-31); CHLORIDE 115 mmol/L (97-110); CREATININE 0.74 mg/dl (0.44-1.00); GLUCOSE 89 mg/dl (70-220); POTASSIUM 3.5 mmol/L (3.5-5.1); SODIUM 145 mmol/L (135-144)
[2017-10-09 06:01] LABS: ALBUMIN 2.8 g/dl (3.3-4.9); ANION GAP 10 (8-16); BLOOD UREA NITROGEN 7 mg/dl (7-20); CALCIUM 7.7 mg/dl (8.4-10.2); CARBON DIOXIDE 25 mmol/L (21-31); CHLORIDE 114 mmol/L (97-110); CREATININE 0.75 mg/dl (0.44-1.00); GLUCOSE 89 mg/dl (70-220); MAGNESIUM 1.8 mg/dl (1.7-2.5); PHOSPHORUS 2.4 mg/dl (2.5-4.9); POTASSIUM 3.6 mmol/L (3.5-5.1); SODIUM 145 mmol/L (135-144)
[2017-10-09] MEDS: LEVOFLOXACIN 500 MG TAB PO (06:17)
[2017-10-09] MEDS: PANTOPRAZOLE 40 MG INJ IV (06:17)
[2017-10-09] MEDS: METOCLOPRAMIDE 5 MG TAB PO (06:17)
[2017-10-09] MEDS: FUROSEMIDE 20 MG INJ IV (09:06)
[2017-10-09] MEDS: ACETAMINOPHEN 325 MG TAB PO (09:06)
[2017-10-09] MEDS: SENNA TAB PO ×2 (09:07→20:31)
[2017-10-09] MEDS: DULOXETINE 30 MG CAP DR PO ×2 (09:07→20:30)
[2017-10-09] MEDS: DILTIAZEM (CD) 120 MG CAP PO (09:07)
[2017-10-09] MEDS: INSULIN GLARGINE [LANtus] 3 ML PEN SC (09:12)
[2017-10-09] MEDS: POTASSIUM CHLORIDE 20 MEQ POWDER FOR ORAL SOLN PO (14:33)
[2017-10-09] MEDS: traZODone 50 MG TAB PO (20:30)
[2017-10-09] MEDS: HYDROCODONE/APAP (5/325) TAB PO (21:43)
[2017-10-10] MEDS: INSULIN ASPART [NOVOLOG] 3 ML PEN SC ×6 (00:52→21:00)
[2017-10-10] MEDS: ALBUTEROL 0.083% (NEB) 2.5 MG/3 ML AMP HHN ×3 (01:33→08:34)
[2017-10-10] MEDS: PANTOPRAZOLE 40 MG INJ IV (05:18)
[2017-10-10 06:45] LABS: ADD MAN DIFF? NO
[2017-10-10 06:53] LABS: ABNORMAL IP MESSAGE 1; BASOPHILS % 0.5 % (0.0-2.0); EOSINOPHILS # 0.1 10^3/ul (0.0-0.5); EOSINOPHILS % 1.8 % (0.0-7.0); HEMATOCRIT 32.5 % (37.0-47.0); HEMOGLOBIN 9.3 g/dl (12.0-16.0); LYMPHOCYTES # 0.9 10^3/ul (0.8-2.9); LYMPHOCYTES % 13.8 % (15.0-51.0); MEAN CORPUSCULAR HEMOGLOBIN 23.6 pg (29.0-33.0); MEAN CORPUSCULAR HGB CONC 28.6 g/dl (32.0-37.0); MEAN CORPUSCULAR VOLUME 82.5 fl (82.0-101.0); MONOCYTE # 0.5 10^3/ul (0.3-0.9); MONOCYTES % 7.6 % (0.0-11.0); NEUTROPHIL # 4.7 10^3/ul (1.6-7.5); NEUTROPHILS % 75.8 % (39.0-77.0); PLATELET COUNT 401 10^3/UL (140-415); RED BLOOD COUNT 3.94 10^6/ul (4.20-5.40); RED CELL DISTRIBUTION WIDTH 23.9 % (11.5-14.5)
[2017-10-10 06:53] LABS: WHITE BLOOD COUNT 6.2 10^3/ul (4.8-10.8)
[2017-10-10 07:08] LABS: ANION GAP 9 (8-16); BLOOD UREA NITROGEN 11 mg/dl (7-20); CALCIUM 8.4 mg/dl (8.4-10.2); CARBON DIOXIDE 26 mmol/L (21-31); CHLORIDE 111 mmol/L (97-110); CREATININE 0.83 mg/dl (0.44-1.00); GLUCOSE 114 mg/dl (70-220); MAGNESIUM 1.7 mg/dl (1.7-2.5); PHOSPHORUS 2.3 mg/dl (2.5-4.9); POTASSIUM 4.7 mmol/L (3.5-5.1); SODIUM 141 mmol/L (135-144)
[2017-10-10 07:15] LABS: POSITIVE DIFF @See below
[2017-10-10] MEDS: SENNA TAB PO ×2 (08:17→20:17)
[2017-10-10] MEDS: FUROSEMIDE 20 MG INJ IV ×2 (08:17→16:11)
[2017-10-10] MEDS: METOCLOPRAMIDE 5 MG TAB PO (08:17)
[2017-10-10] MEDS: DILTIAZEM (CD) 120 MG CAP PO (08:17)
[2017-10-10] MEDS: DULOXETINE 30 MG CAP DR PO ×2 (08:18→20:17)
[2017-10-10] MEDS: INSULIN GLARGINE [LANtus] 3 ML PEN SC (08:21)
[2017-10-10] MEDS ORDERED: ALBUTEROL/IPRATROPIUM (NEB) 3 ML AMP HHN (11:30)
[2017-10-10] MEDS: SODIUM PHOSPHATE 15 MMOL in SOD CHLORIDE 0.9% 250 ML IVPB (12:44)
[2017-10-10] MEDS: ALBUTEROL/IPRATROPIUM (NEB) 3 ML AMP HHN ×2 (14:25→20:27)
[2017-10-10 15:19] LABS: B-TYPE NATRIURETIC PEPTIDE 20000 PG/ML (0-450)
[2017-10-10] MEDS ORDERED: NITROGLYCERIN (SL) 0.4 MG TAB (16:06)
[2017-10-10] MEDS: traZODone 50 MG TAB PO (20:17)
[2017-10-10] MEDS: HYDROCODONE/APAP (5/325) TAB PO (20:17)
[2017-10-11] MEDS: INSULIN ASPART [NOVOLOG] 3 ML PEN SC ×6 (00:37→21:00)
[2017-10-11] MEDS: PANTOPRAZOLE 40 MG INJ IV (05:27)
[2017-10-11] MEDS: LEVOFLOXACIN 500 MG TAB PO (05:30)
[2017-10-11] MEDS: FUROSEMIDE 20 MG INJ IV (08:37)
[2017-10-11] MEDS: METOCLOPRAMIDE 5 MG TAB PO (08:39)
[2017-10-11] MEDS: DULOXETINE 30 MG CAP DR PO ×2 (08:39→20:44)
[2017-10-11] MEDS: DILTIAZEM (CD) 120 MG CAP PO (08:39)
[2017-10-11] MEDS: SENNA TAB PO ×2 (08:39→20:44)
[2017-10-11] MEDS: INSULIN GLARGINE [LANtus] 3 ML PEN SC (08:59)
[2017-10-11] MEDS ORDERED: FUROSEMIDE 20 MG TAB PO (09:00)
[2017-10-11] MEDS: ALBUTEROL/IPRATROPIUM (NEB) 3 ML AMP HHN ×3 (09:20→21:06)
[2017-10-11 09:27] LABS: ADD MAN DIFF? NO
[2017-10-11 09:30] LABS: ABNORMAL IP MESSAGE 1; BASOPHILS % 0.3 % (0.0-2.0); EOSINOPHILS # 0.1 10^3/ul (0.0-0.5); EOSINOPHILS % 1.1 % (0.0-7.0); HEMATOCRIT 36.9 % (37.0-47.0); HEMOGLOBIN 10.6 g/dl (12.0-16.0); LYMPHOCYTES # 0.5 10^3/ul (0.8-2.9); LYMPHOCYTES % 6.8 % (15.0-51.0); MEAN CORPUSCULAR HEMOGLOBIN 23.8 pg (29.0-33.0); MEAN CORPUSCULAR HGB CONC 28.7 g/dl (32.0-37.0); MEAN CORPUSCULAR VOLUME 82.7 fl (82.0-101.0); MEAN PLATELET VOLUME 10.7 fl (7.4-10.4); MONOCYTE # 0.4 10^3/ul (0.3-0.9); MONOCYTES % 6.2 % (0.0-11.0); NEUTROPHIL # 6.1 10^3/ul (1.6-7.5); NEUTROPHILS % 85.2 % (39.0-77.0); PLATELET COUNT 332 10^3/UL (140-415); RED BLOOD COUNT 4.46 10^6/ul (4.20-5.40); RED CELL DISTRIBUTION WIDTH 24.1 % (11.5-14.5)
[2017-10-11 09:30] LABS: WHITE BLOOD COUNT 7.1 10^3/ul (4.8-10.8)
[2017-10-11 09:51] LABS: POSITIVE DIFF @See below
[2017-10-11 10:12] LABS: ANION GAP 10 (8-16); BLOOD UREA NITROGEN 10 mg/dl (7-20); CALCIUM 8.5 mg/dl (8.4-10.2); CARBON DIOXIDE 27 mmol/L (21-31); CHLORIDE 107 mmol/L (97-110); CREATININE 0.73 mg/dl (0.44-1.00); GLUCOSE 88 mg/dl (70-220); MAGNESIUM 1.6 mg/dl (1.7-2.5); PHOSPHORUS 2.9 mg/dl (2.5-4.9); POTASSIUM 4.4 mmol/L (3.5-5.1); SODIUM 140 mmol/L (135-144)
[2017-10-11] MEDS: MAGNESIUM OXIDE 400 MG TAB PO (14:52)
[2017-10-11] MEDS: traZODone 50 MG TAB PO (20:44)
[2017-10-11] MEDS: DIPHENHYDRAMINE 25 MG CAP PO (23:41)
[2017-10-12] MEDS: PANTOPRAZOLE 40 MG INJ IV (06:14)
[2017-10-12 07:03] LABS: ADD MAN DIFF? NO
[2017-10-12 07:13] LABS: WHITE BLOOD COUNT 8.6 10^3/ul (4.8-10.8)
[2017-10-12 07:13] LABS: ABNORMAL IP MESSAGE 1; BASOPHILS % 0.3 % (0.0-2.0); EOSINOPHILS # 0.1 10^3/ul (0.0-0.5); EOSINOPHILS % 1.2 % (0.0-7.0); HEMATOCRIT 37.6 % (37.0-47.0); HEMOGLOBIN 10.9 g/dl (12.0-16.0); LYMPHOCYTES # 1.1 10^3/ul (0.8-2.9); LYMPHOCYTES % 13.2 % (15.0-51.0); MEAN CORPUSCULAR HEMOGLOBIN 23.9 pg (29.0-33.0); MEAN CORPUSCULAR VOLUME 82.3 fl (82.0-101.0); MEAN PLATELET VOLUME 10.2 fl (7.4-10.4); MONOCYTE # 0.8 10^3/ul (0.3-0.9); MONOCYTES % 9.3 % (0.0-11.0); NEUTROPHIL # 6.5 10^3/ul (1.6-7.5); NEUTROPHILS % 75.5 % (39.0-77.0); PLATELET COUNT 569 10^3/UL (140-415); RED BLOOD COUNT 4.57 10^6/ul (4.20-5.40)
[2017-10-12 07:16] LABS: POSITIVE DIFF @See below
[2017-10-12] MEDS: INSULIN ASPART [NOVOLOG] 3 ML PEN SC ×4 (07:30→21:00)
[2017-10-12 07:38] LABS: ANION GAP 13 (8-16); BLOOD UREA NITROGEN 12 mg/dl (7-20); CALCIUM 9.1 mg/dl (8.4-10.2); CARBON DIOXIDE 27 mmol/L (21-31); CHLORIDE 105 mmol/L (97-110); CREATININE 0.88 mg/dl (0.44-1.00); GLUCOSE 79 mg/dl (70-220); MAGNESIUM 1.7 mg/dl (1.7-2.5); PHOSPHORUS 2.8 mg/dl (2.5-4.9); POTASSIUM 3.8 mmol/L (3.5-5.1); SODIUM 141 mmol/L (135-144)
[2017-10-12] MEDS: ALBUTEROL/IPRATROPIUM (NEB) 3 ML AMP HHN ×3 (08:07→19:50)
[2017-10-12] MEDS: DULOXETINE 30 MG CAP DR PO ×2 (08:13→21:05)
[2017-10-12] MEDS: DILTIAZEM (CD) 120 MG CAP PO (08:14)
[2017-10-12] MEDS: METOCLOPRAMIDE 5 MG TAB PO (08:15)
[2017-10-12] MEDS: FUROSEMIDE 40 MG TAB PO ×2 (08:15→17:27)
[2017-10-12] MEDS: SENNA TAB PO ×2 (08:15→21:05)
[2017-10-12] MEDS: INSULIN GLARGINE [LANtus] 3 ML PEN SC (08:19)
[2017-10-12] MEDS: DIPHENHYDRAMINE 25 MG CAP PO (19:00)
[2017-10-12] MEDS: traZODone 50 MG TAB PO (21:04)
[2017-10-13] MEDS: LEVOFLOXACIN 500 MG TAB PO (06:09)
[2017-10-13] MEDS: PANTOPRAZOLE 40 MG INJ IV (06:09)
[2017-10-13] MEDS: FUROSEMIDE 40 MG TAB PO (06:10)
[2017-10-13 07:13] LABS: ADD MAN DIFF? NO
[2017-10-13 07:15] LABS: WHITE BLOOD COUNT 6.1 10^3/ul (4.8-10.8)
[2017-10-13 07:15] LABS: ABNORMAL IP MESSAGE 1; BASOPHILS % 0.7 % (0.0-2.0); EOSINOPHILS # 0.1 10^3/ul (0.0-0.5); EOSINOPHILS % 1.3 % (0.0-7.0); HEMATOCRIT 37.2 % (37.0-47.0); HEMOGLOBIN 10.7 g/dl (12.0-16.0); LYMPHOCYTES # 0.8 10^3/ul (0.8-2.9); LYMPHOCYTES % 12.3 % (15.0-51.0); MEAN CORPUSCULAR HEMOGLOBIN 23.5 pg (29.0-33.0); MEAN CORPUSCULAR HGB CONC 28.8 g/dl (32.0-37.0); MEAN CORPUSCULAR VOLUME 81.8 fl (82.0-101.0); MEAN PLATELET VOLUME 9.9 fl (7.4-10.4); MONOCYTE # 0.7 10^3/ul (0.3-0.9); NEUTROPHIL # 4.5 10^3/ul (1.6-7.5); NEUTROPHILS % 74.2 % (39.0-77.0); PLATELET COUNT 408 10^3/UL (140-415); RED BLOOD COUNT 4.55 10^6/ul (4.20-5.40); RED CELL DISTRIBUTION WIDTH 24.1 % (11.5-14.5)
[2017-10-13] MEDS: ALBUTEROL/IPRATROPIUM (NEB) 3 ML AMP HHN ×3 (07:26→19:53)
[2017-10-13] MEDS: INSULIN ASPART [NOVOLOG] 3 ML PEN SC ×4 (07:30→20:43)
[2017-10-13 07:31] LABS: POSITIVE DIFF @See below
[2017-10-13 07:45] LABS: ANION GAP 13 (8-16); BLOOD UREA NITROGEN 16 mg/dl (7-20); CALCIUM 9.4 mg/dl (8.4-10.2); CARBON DIOXIDE 31 mmol/L (21-31); CHLORIDE 99 mmol/L (97-110); CREATININE 0.87 mg/dl (0.44-1.00); GLUCOSE 92 mg/dl (70-220); MAGNESIUM 1.6 mg/dl (1.7-2.5); PHOSPHORUS 4.5 mg/dl (2.5-4.9); POTASSIUM 3.6 mmol/L (3.5-5.1); SODIUM 139 mmol/L (135-144)
[2017-10-13] MEDS: METOCLOPRAMIDE 5 MG TAB PO (08:06)
[2017-10-13] MEDS: INSULIN GLARGINE [LANtus] 3 ML PEN SC (08:07)
[2017-10-13] MEDS: DILTIAZEM (CD) 120 MG CAP PO (08:36)
[2017-10-13] MEDS: SENNA TAB PO ×2 (08:37→20:43)
[2017-10-13] MEDS: DULOXETINE 30 MG CAP DR PO ×2 (08:37→20:43)
[2017-10-13] MEDS: MAGNESIUM OXIDE 400 MG TAB PO (12:57)
[2017-10-13] MEDS: DIPHENHYDRAMINE 25 MG CAP PO (20:42)
[2017-10-13] MEDS: traZODone 50 MG TAB PO (20:43)
[2017-10-14] MEDS: FUROSEMIDE 40 MG TAB PO (05:41)
[2017-10-14] MEDS: DIPHENHYDRAMINE 25 MG CAP PO (05:41)
[2017-10-14] MEDS: PANTOPRAZOLE 40 MG INJ IV (05:42)
[2017-10-14 06:10] LABS: ADD MAN DIFF? NO
[2017-10-14 06:27] LABS: WHITE BLOOD COUNT 5.9 10^3/ul (4.8-10.8)
[2017-10-14 06:27] LABS: ABNORMAL IP MESSAGE 1; BASOPHILS % 0.7 % (0.0-2.0); EOSINOPHILS # 0.1 10^3/ul (0.0-0.5); HEMATOCRIT 33.9 % (37.0-47.0); HEMOGLOBIN 10.3 g/dl (12.0-16.0); LYMPHOCYTES # 0.8 10^3/ul (0.8-2.9); LYMPHOCYTES % 12.6 % (15.0-51.0); MEAN CORPUSCULAR HGB CONC 30.4 g/dl (32.0-37.0); MONOCYTE # 0.6 10^3/ul (0.3-0.9); MONOCYTES % 9.3 % (0.0-11.0); NEUTROPHIL # 4.5 10^3/ul (1.6-7.5); NEUTROPHILS % 76.1 % (39.0-77.0); PLATELET COUNT 419 10^3/UL (140-415); RED BLOOD COUNT 4.29 10^6/ul (4.20-5.40); RED CELL DISTRIBUTION WIDTH 24.1 % (11.5-14.5)
[2017-10-14 06:57] LABS: ANION GAP 15 (8-16); BLOOD UREA NITROGEN 22 mg/dl (7-20); CALCIUM 9.4 mg/dl (8.4-10.2); CARBON DIOXIDE 32 mmol/L (21-31); CHLORIDE 98 mmol/L (97-110); GLUCOSE 101 mg/dl (70-220); MAGNESIUM 1.7 mg/dl (1.7-2.5); POTASSIUM 3.7 mmol/L (3.5-5.1); SODIUM 141 mmol/L (135-144)
[2017-10-14 07:10] LABS: POSITIVE DIFF @See below
[2017-10-14] MEDS: INSULIN ASPART [NOVOLOG] 3 ML PEN SC ×4 (07:30→20:18)
[2017-10-14] MEDS: METOCLOPRAMIDE 5 MG TAB PO (07:44)
[2017-10-14] MEDS: ALBUTEROL/IPRATROPIUM (NEB) 3 ML AMP HHN ×3 (07:57→21:05)
[2017-10-14] MEDS: SENNA TAB PO ×2 (08:23→20:33)
[2017-10-14] MEDS: DULOXETINE 30 MG CAP DR PO ×2 (08:23→20:33)
[2017-10-14] MEDS: DILTIAZEM (CD) 120 MG CAP PO (08:23)
[2017-10-14] MEDS: INSULIN GLARGINE [LANtus] 3 ML PEN SC (08:30)
[2017-10-14] MEDS: BISACODYL (EC) 5 MG TAB PO (11:44)
[2017-10-14] MEDS: traZODone 50 MG TAB PO (20:32)
[2017-10-15] MEDS: ACETAMINOPHEN 325 MG TAB PO (01:50)
[2017-10-15] MEDS: PANTOPRAZOLE 40 MG INJ IV (05:00)
[2017-10-15] MEDS: METOCLOPRAMIDE 5 MG TAB PO (05:00)
[2017-10-15] MEDS: LEVOFLOXACIN 500 MG TAB PO (05:00)
[2017-10-15] MEDS: FUROSEMIDE 20 MG TAB PO (05:01)
[2017-10-15] MEDS ORDERED: FUROSEMIDE 40 MG TAB PO (06:00)
[2017-10-15] MEDS: INSULIN ASPART [NOVOLOG] 3 ML PEN SC ×2 (07:30→11:30)
[2017-10-15 07:37] LABS: ADD MAN DIFF? NO
[2017-10-15 07:40] LABS: ABNORMAL IP MESSAGE 1; BASOPHILS % 0.5 % (0.0-2.0); EOSINOPHILS # 0.1 10^3/ul (0.0-0.5); EOSINOPHILS % 0.8 % (0.0-7.0); HEMATOCRIT 34.6 % (37.0-47.0); HEMOGLOBIN 10.2 g/dl (12.0-16.0); LYMPHOCYTES # 0.7 10^3/ul (0.8-2.9); LYMPHOCYTES % 12.1 % (15.0-51.0); MEAN CORPUSCULAR HEMOGLOBIN 23.9 pg (29.0-33.0); MEAN CORPUSCULAR HGB CONC 29.5 g/dl (32.0-37.0); MEAN PLATELET VOLUME 10.3 fl (7.4-10.4); MONOCYTE # 0.6 10^3/ul (0.3-0.9); MONOCYTES % 9.1 % (0.0-11.0); NEUTROPHIL # 4.6 10^3/ul (1.6-7.5); NEUTROPHILS % 76.8 % (39.0-77.0); PLATELET COUNT 409 10^3/UL (140-415); RED BLOOD COUNT 4.27 10^6/ul (4.20-5.40); RED CELL DISTRIBUTION WIDTH 24.4 % (11.5-14.5)
[2017-10-15] MEDS: ALBUTEROL/IPRATROPIUM (NEB) 3 ML AMP HHN ×2 (07:41→13:34)
[2017-10-15 07:44] LABS: POSITIVE DIFF @See below
[2017-10-15] MEDS: INSULIN GLARGINE [LANtus] 3 ML PEN SC (07:48)
[2017-10-15 08:02] LABS: ANION GAP 13 (8-16); BLOOD UREA NITROGEN 27 mg/dl (7-20); CALCIUM 9.2 mg/dl (8.4-10.2); CARBON DIOXIDE 33 mmol/L (21-31); CHLORIDE 98 mmol/L (97-110); CREATININE 1.19 mg/dl (0.44-1.00); GLUCOSE 97 mg/dl (70-220); MAGNESIUM 1.9 mg/dl (1.7-2.5); PHOSPHORUS 3.2 mg/dl (2.5-4.9); POTASSIUM 4.3 mmol/L (3.5-5.1); SODIUM 140 mmol/L (135-144)
[2017-10-15] MEDS: SENNA TAB PO (08:57)
[2017-10-15] MEDS: DILTIAZEM (CD) 120 MG CAP PO (08:57)
[2017-10-15] MEDS: DULOXETINE 30 MG CAP DR PO (08:57)
[2017-10-15] MEDS ORDERED: FUROSEMIDE 20 MG TAB PO (09:00)
== END 2017-10-15 16:36 | DRG 377 ==
LOC: ICU 10-06 19:17 → E/R 19:42 → MS4 22:22
PROVIDERS: Family Medicine
PROC: 0DB68ZX Excision of Stomach, Via Natural or Artificial Opening Endoscopic, Diagnostic (ICD-10-PCS; principal; 2017-10-04 12:20)
PROC: 0DJD8ZZ Inspection of Lower Intestinal Tract, Via Natural or Artificial Opening Endoscopic (ICD-10-PCS; 2017-10-04 12:20)
PROC: 5A1945Z Respiratory Ventilation, 24-96 Consecutive Hours (ICD-10-PCS; 2017-10-04 12:20)
PROC: 0BH17EZ Insertion of Endotracheal Airway into Trachea, Via Natural or Artificial Opening (ICD-10-PCS; 2017-10-04 12:20)
PROC: 30233N1 Transfusion of Nonautologous Red Blood Cells into Peripheral Vein, Percutaneous Approach (ICD-10-PCS; 2017-10-04 12:20)
PROC: 0W993ZZ Drainage of Right Pleural Cavity, Percutaneous Approach (ICD-10-PCS; 2017-10-04 12:20)
DX: K62.5 Hemorrhage of anus and rectum (principal); J18.9 Pneumonia, unspecified organism; J96.01 Acute respiratory failure with hypoxia; J90 Pleural effusion, not elsewhere classified; D50.9 Iron deficiency anemia, unspecified; D64.9 Anemia, unspecified; E78.5 Hyperlipidemia, unspecified; E11.9 Type 2 diabetes mellitus without complications; E87.6 Hypokalemia; F03.90 Unspecified dementia, unspecified severity, without behavioral disturbance, psychotic disturbance, mood disturbance, and anxiety; F41.9 Anxiety disorder, unspecified; F32.9 Major depressive disorder, single episode, unspecified; I27.20 Pulmonary hypertension, unspecified; I25.10 Atherosclerotic heart disease of native coronary artery without angina pectoris; I11.0 Hypertensive heart disease with heart failure; I50.9 Heart failure, unspecified; J44.9 Chronic obstructive pulmonary disease, unspecified; K64.8 Other hemorrhoids; K29.70 Gastritis, unspecified, without bleeding; K57.90 Diverticulosis of intestine, part unspecified, without perforation or abscess without bleeding; K64.4 Residual hemorrhoidal skin tags; K21.0 Gastro-esophageal reflux disease with esophagitis; M19.90 Unspecified osteoarthritis, unspecified site; M35.3 Polymyalgia rheumatica; Z96.642 Presence of left artificial hip joint; Z87.11 Personal history of peptic ulcer disease; I25.2 Old myocardial infarction; Z79.84 Long term (current) use of oral hypoglycemic drugs; Z79.02 Long term (current) use of antithrombotics/antiplatelets
CPT/HCPCS: 31500; 36415; 36430; 36600; 71045; 71260; 73630; 74177; 76942; 80048; 80053; 80061; 80069; 81001; 81003; 82150; 82270; 82306; 82550; 82553; 82652; 82803; 82945; 82962; 83036; 83540; 83605; 83690; 83735; 83880; 83930; 83935; 84100; 84157; 84300; 84436; 84443; 84479; 84484; 85025; 85610; 85651; 85730; 86140; 86850; 86900; 86901; 86920; 87070; 87081; 87102; 87116; 88104; 88305; 88312; 89051; 92526; 92610; 93005; 93306; 94003; 94640; 94660; 94664; 94770; 96374; 96375; 97116; 97162; 97165; 97530; 97535; 99291-25

== ENCOUNTER 2018-02-09 15:04 | Emergency (ER) | payer MEDICARE, OTHER ==
[2018-02-09] MEDS: hydrOXYzine HCL 25 MG TAB PO (17:30)
[2018-02-09 18:10] LABS: ADD MAN DIFF? NO; BASOPHILS % 0.5 % (0.0-2.0); EOSINOPHILS # 0.1 10^3/ul (0.0-0.5); EOSINOPHILS % 1.3 % (0.0-7.0); HEMATOCRIT 38.5 % (37.0-47.0); HEMOGLOBIN 12.4 g/dl (12.0-16.0); LYMPHOCYTES % 16.9 % (15.0-51.0); MEAN CORPUSCULAR HEMOGLOBIN 28.2 pg (29.0-33.0); MEAN CORPUSCULAR HGB CONC 32.2 g/dl (32.0-37.0); MEAN CORPUSCULAR VOLUME 87.7 fl (82.0-101.0); MEAN PLATELET VOLUME 9.7 fl (7.4-10.4); MONOCYTE # 0.5 10^3/ul (0.3-0.9); MONOCYTES % 7.6 % (0.0-11.0); NEUTROPHIL # 4.4 10^3/ul (1.6-7.5); NEUTROPHILS % 73.4 % (39.0-77.0); PLATELET COUNT 277 10^3/UL (140-415); RED BLOOD COUNT 4.39 10^6/ul (4.20-5.40); RED CELL DISTRIBUTION WIDTH 13.4 % (11.5-14.5)
[2018-02-09 18:28] LABS: ANION GAP 10 (5-13); BLOOD UREA NITROGEN 29 mg/dl (7-20); CALCIUM 9.5 mg/dl (8.4-10.2); CARBON DIOXIDE 32 mmol/L (21-31); CHLORIDE 96 mmol/L (97-110); CREATININE 1.27 mg/dl (0.44-1.00); GLUCOSE 98 mg/dl (70-220); SODIUM 138 mmol/L (135-144)
[2018-02-09 18:45] LABS: ADD UMIC NO; UR ASCORBIC ACID NEGATIVE (NEGATIVE); UR BILIRUBIN (Dip) NEGATIVE (NEGATIVE); UR BLOOD (Dip) NEGATIVE (NEGATIVE); UR CLARITY CLEAR (CLEAR); UR COLOR YELLOW (YELLOW); UR GLUCOSE (Dip) NEGATIVE (NEGATIVE); UR KETONES (Dip) NEGATIVE (NEGATIVE); UR LEUKOCYTE ESTERASE (Dip) NEGATIVE Leu/ul (NEGATIVE); UR NITRITE (Dip) NEGATIVE (NEGATIVE); UR SPECIFIC GRAVITY (Dip) 1.011 (1.003-1.030); UR TOTAL PROTEIN (Dip) NEGATIVE (NEGATIVE); UR UROBILINOGEN (Dip) NEGATIVE (NEGATIVE)
[2018-02-09] MEDS: POTASSIUM CHLORIDE (SR) 20 MEQ TAB PO (19:09)
== END 2018-02-09 19:19 | disposition home or self-care (01) ==
LOC: E/R 15:04
DX: N18.9 Chronic kidney disease, unspecified (principal); E87.6 Hypokalemia; L29.9 Pruritus, unspecified; Z79.84 Long term (current) use of oral hypoglycemic drugs
CPT/HCPCS: 80048; 81003; 85025; 87086; 99283

== ENCOUNTER 2018-06-15 11:54 | Inpatient (IN) | payer MEDICARE, OTHER ==
[2018-06-15 12:38] LABS: ABNORMAL IP MESSAGE 1; HEMATOCRIT 21.2 % (37.0-47.0); MEAN CORPUSCULAR HEMOGLOBIN 26.9 pg (29.0-33.0); MEAN CORPUSCULAR HGB CONC 30.2 g/dl (32.0-37.0); MEAN CORPUSCULAR VOLUME 89.1 fl (82.0-101.0); MEAN PLATELET VOLUME 10.2 fl (7.4-10.4); PLATELET COUNT 395 10^3/UL (140-415); RED BLOOD COUNT 2.38 10^6/ul (4.20-5.40); RED CELL DISTRIBUTION WIDTH 14.6 % (11.5-14.5)
[2018-06-15 12:38] LABS: WHITE BLOOD COUNT 11.3 10^3/ul (4.8-10.8)
[2018-06-15 12:39] LABS: POSITIVE DIFF @See below
[2018-06-15 12:43] LABS: HEMOGLOBIN 6.4 g/dl (12.0-16.0); PATH REVIEW? YES
[2018-06-15 12:44] LABS: ADD MAN DIFF? YES
[2018-06-15 12:54] LABS: ALANINE AMINOTRANSFERASE 24 IU/L (13-69); ALKALINE PHOSPHATASE 80 IU/L (42-121); ANION GAP 6 (5-13); ASPARTATE AMINO TRANSFERASE 25 IU/L (15-46); BLOOD UREA NITROGEN 68 mg/dl (7-20); CALCIUM 8.9 mg/dl (8.4-10.2); CARBON DIOXIDE 36 mmol/L (21-31); CHLORIDE 95 mmol/L (97-110); CREATININE 1.31 mg/dl (0.44-1.00); GLUCOSE 145 mg/dl (70-220); POTASSIUM 3.3 mmol/L (3.5-5.1); SODIUM 137 mmol/L (135-144)
[2018-06-15 12:55] LABS: ALBUMIN 3.4 g/dl (3.3-4.9)
[2018-06-15 12:56] LABS: INR 0.95; PROTIME 12.8 Sec (11.9-14.9)
[2018-06-15 13:06] LABS: ANISOCYTOSIS 1+ (0-0); B-TYPE NATRIURETIC PEPTIDE 2480 PG/ML (0-450); LYMPHOCYTES #M 0.4 10^3/ul (0.8-2.9); LYMPHOCYTES % (M) 4 % (15-51); MICROCYTOSIS 1+ (0-0); MONOCYTE #M 0.2 10^3/ul (0.3-0.9); MONOCYTES % (M) 2 % (0-11); PLATELET ESTIMATE NORMAL; POLYCHROMASIA 3+ (0-0); SEGMENTED NEUTROPHILS (M) % 94 % (39-77); SMUDGE%M 4 % (0-0); TROPONIN-I < 0.012 ng/ml (0.000-0.120)
[2018-06-15 13:26] LABS: IRON 92 ug/dl (35-150)
[2018-06-15 13:36] LABS: % IRON SATURATION 33 % SAT (22-52); TOTAL IRON BINDING CAPACITY 283 ug/dl (241-421)
[2018-06-15] MEDS ORDERED: SOD CHLORIDE 0.9% 1,000 ML IV (13:47)
[2018-06-15] MEDS ORDERED: BISACODYL (EC) 5 MG TAB PO (14:00)
[2018-06-15] MEDS ORDERED: NITROGLYCERIN (SL) 0.4 MG TAB SL (14:00)
[2018-06-15] MEDS ORDERED: NACL 0.9% 3 ML SYG IV (14:00)
[2018-06-15] MEDS ORDERED: ONDANSETRON 4 MG INJ IV (14:00)
[2018-06-15] MEDS ORDERED: GLUCAGON 1 MG INJ IM (15:00)
[2018-06-15] MEDS ORDERED: DEXTROSE 50% 50 ML SYRINGE IV ×2 (15:00)
[2018-06-15] MEDS ORDERED: GLUCOSE GEL 15 GRAM TUBE BUCCAL (15:00)
[2018-06-15] MEDS ORDERED: GLUCOSE GEL 15 GRAM TUBE PO ×2 (15:00)
[2018-06-15] MEDS: DOCUSATE SODIUM 100 MG CAP PO ×2 (16:02→21:04)
[2018-06-15] MEDS: SOD CHLORIDE 0.9% 0 ML IV (16:04)
[2018-06-15 16:15] LABS: CARCINOEMBRYONIC ANTIGEN 0.8 ng/ml (0.0-5.0)
[2018-06-15] MEDS: DIPHENHYDRAMINE 25 MG CAP PO (16:38)
[2018-06-15] MEDS: ACETAMINOPHEN 325 MG TAB PO (16:38)
[2018-06-15] MEDS: INSULIN ASPART [NOVOLOG] 3 ML PEN SC ×2 (17:35→21:00)
[2018-06-15 19:12] LABS: HEMOGLOBIN 7.4 g/dl (12.0-16.0)
[2018-06-15 19:13] LABS: RETICULOCYTE COUNT # 0.048 X10^6 (0.020-0.110); RETICULOCYTE COUNT % 1.8 % (0.5-1.5)
[2018-06-15 19:13] LABS: RETICULOCYTE RBC 2.66
[2018-06-15 19:38] LABS: LACTATE DEHYDROGENASE 514 IU/L (313-618)
[2018-06-15 19:39] LABS: MAGNESIUM 2.4 mg/dl (1.7-2.5)
[2018-06-15 19:47] LABS: IMMUNOGLOBULIN A 70 mg/dl (70-400); IMMUNOGLOBULIN G 617 mg/dl (700-1600); IMMUNOGLOBULIN M 56 mg/dl (40-230)
[2018-06-15 20:23] LABS: ERYTHROCYTE SEDIMENTATION RATE 63 mm/Hr (0-30)
[2018-06-15 20:44] LABS: FOLATE 6.5 ng/ml (2.8-20.0)
[2018-06-15] MEDS: traZODone 50 MG TAB PO (21:04)
[2018-06-15] MEDS: DULOXETINE 30 MG CAP DR PO (21:06)
[2018-06-15] MEDS: INSULIN GLARGINE [LANTus] (100 UNITS/ML) SYG SC (21:09)
[2018-06-16] MEDS: SOD CHLORIDE 0.9% 1,000 ML IV ×2 (00:46→17:51)
[2018-06-16 00:59] LABS: ADD UMIC NO; UR ASCORBIC ACID NEGATIVE (NEGATIVE); UR BILIRUBIN (Dip) NEGATIVE (NEGATIVE); UR BLOOD (Dip) NEGATIVE (NEGATIVE); UR CLARITY CLEAR (CLEAR); UR COLOR STRAW (YELLOW); UR GLUCOSE (Dip) NEGATIVE (NEGATIVE); UR KETONES (Dip) NEGATIVE (NEGATIVE); UR LEUKOCYTE ESTERASE (Dip) NEGATIVE Leu/ul (NEGATIVE); UR NITRITE (Dip) NEGATIVE (NEGATIVE); UR TOTAL PROTEIN (Dip) NEGATIVE (NEGATIVE); UR UROBILINOGEN (Dip) NEGATIVE (NEGATIVE)
[2018-06-16 01:16] LABS: CREATINE KINASE 98 IU/L (23-200)
[2018-06-16 01:27] LABS: CK INDEX 2.2; CK-MB 2.17 ng/ml (0.0-2.4); TROPONIN-I 0.033 ng/ml (0.000-0.120)
[2018-06-16 01:59] LABS: SODIUM,URINE RANDOM 18 mmol/L (30-90)
[2018-06-16 01:59] LABS: CREATININE,URINE RANDOM 38.32 mg/dl (20-320)
[2018-06-16] MEDS: ACCU-CHEK XX (02:09)
[2018-06-16 04:41] LABS: PROTEIN, TOTAL 5.5 g/dL (6.1-8.1)
[2018-06-16] MEDS ORDERED: FUROSEMIDE 20 MG TAB PO (06:00)
[2018-06-16 06:06] LABS: ADD MAN DIFF? NO
[2018-06-16 06:32] LABS: BASOPHILS % 0.3 % (0.0-2.0); EOSINOPHILS # 0.1 10^3/ul (0.0-0.5); EOSINOPHILS % 1.9 % (0.0-7.0); HEMATOCRIT 26.1 % (37.0-47.0); HEMOGLOBIN 8.4 g/dl (12.0-16.0); LYMPHOCYTES # 0.7 10^3/ul (0.8-2.9); LYMPHOCYTES % 10.3 % (15.0-51.0); MEAN CORPUSCULAR HEMOGLOBIN 29.3 pg (29.0-33.0); MEAN CORPUSCULAR HGB CONC 32.2 g/dl (32.0-37.0); MEAN CORPUSCULAR VOLUME 90.9 fl (82.0-101.0); MONOCYTE # 0.5 10^3/ul (0.3-0.9); MONOCYTES % 6.6 % (0.0-11.0); NEUTROPHIL # 5.4 10^3/ul (1.6-7.5); NEUTROPHILS % 79.4 % (39.0-77.0); PLATELET COUNT 268 10^3/UL (140-415); RED BLOOD COUNT 2.87 10^6/ul (4.20-5.40); RED CELL DISTRIBUTION WIDTH 14.3 % (11.5-14.5)
[2018-06-16 06:32] LABS: WHITE BLOOD COUNT 6.8 10^3/ul (4.8-10.8)
[2018-06-16] MEDS: PANTOPRAZOLE (EC) 40 MG TAB PO (06:33)
[2018-06-16 06:43] LABS: HEMOGLOBIN A1C 5.9 % (0-5.9)
[2018-06-16 07:13] LABS: CHOLESTEROL 160 mg/dl (100-200)
[2018-06-16 07:13] LABS: CHOL/HDL RATIO 4.7 RATIO; HDL CHOLESTEROL 34 mg/dl (33-92); LDL CHOLESTEROL,CALCULATED 91 mg/dl; TRIGLYCERIDES 177 mg/dl (0-149)
[2018-06-16 07:20] LABS: ALANINE AMINOTRANSFERASE 19 IU/L (13-69); ALBUMIN 2.9 g/dl (3.3-4.9); ALBUMIN/GLOBULIN RATIO 1.03; ALKALINE PHOSPHATASE 66 IU/L (42-121); ANION GAP 5 (5-13); ASPARTATE AMINO TRANSFERASE 20 IU/L (15-46); BLOOD UREA NITROGEN 66 mg/dl (7-20); CALCIUM 8.7 mg/dl (8.4-10.2); CARBON DIOXIDE 33 mmol/L (21-31); CHLORIDE 99 mmol/L (97-110); CREATININE 1.19 mg/dl (0.44-1.00); GLUCOSE 123 mg/dl (70-220); MAGNESIUM 2.1 mg/dl (1.7-2.5); PHOSPHORUS 3.4 mg/dl (2.5-4.9); SODIUM 137 mmol/L (135-144); TOTAL PROTEIN 5.7 g/dl (6.1-8.1)
[2018-06-16] MEDS: INSULIN ASPART [NOVOLOG] 3 ML PEN SC ×4 (07:52→21:00)
[2018-06-16] MEDS: DULOXETINE 30 MG CAP DR PO ×2 (08:02→20:13)
[2018-06-16] MEDS: DILTIAZEM (CD) 120 MG CAP PO (08:03)
[2018-06-16] MEDS: ACETAMINOPHEN 325 MG TAB PO (08:03)
[2018-06-16] MEDS: DOCUSATE SODIUM 100 MG CAP PO ×2 (08:03→20:14)
[2018-06-16] MEDS: BISACODYL (EC) 5 MG TAB PO (10:00)
[2018-06-16] MEDS: POTASSIUM CHLORIDE (SR) 20 MEQ TAB PO (10:01)
[2018-06-16] MEDS ORDERED: SENNA TAB PO (11:30)
[2018-06-16 13:03] LABS: OCCULT BLOOD STOOL POSITIVE (NEGATIVE)
[2018-06-16] MEDS: NA PHOSPHATE/BIPHOS 133 ML ENEMA PR (14:46)
[2018-06-16 16:23] LABS: ALBUMIN 3.1 g/dL (3.8-4.8); ALPHA-1-GLOBULINS 0.4 g/dL (0.2-0.3); ALPHA-2-GLOBULINS 0.8 g/dL (0.5-0.9); BETA 2 GLOBULINS 0.2 g/dL (0.2-0.5); BETA GLOBULINS 0.4 g/dL (0.4-0.6); GAMMA GLOBULINS 0.6 g/dL (0.8-1.7)
[2018-06-16 17:05] LABS: HAPTOGLOBIN 264 mg/dL (43-212)
[2018-06-16 17:21] LABS: ADD MAN DIFF? NO
[2018-06-16 17:23] LABS: BASOPHILS % 0.3 % (0.0-2.0); EOSINOPHILS % 0.5 % (0.0-7.0); HEMATOCRIT 22.8 % (37.0-47.0); HEMOGLOBIN 7.1 g/dl (12.0-16.0); LYMPHOCYTES # 0.7 10^3/ul (0.8-2.9); LYMPHOCYTES % 8.3 % (15.0-51.0); MEAN CORPUSCULAR HEMOGLOBIN 28.7 pg (29.0-33.0); MEAN CORPUSCULAR HGB CONC 31.1 g/dl (32.0-37.0); MEAN CORPUSCULAR VOLUME 92.3 fl (82.0-101.0); MEAN PLATELET VOLUME 9.9 fl (7.4-10.4); MONOCYTE # 0.5 10^3/ul (0.3-0.9); MONOCYTES % 5.8 % (0.0-11.0); NEUTROPHIL # 6.7 10^3/ul (1.6-7.5); NEUTROPHILS % 83.3 % (39.0-77.0); NUCLEATED RED BLOOD CELLS% 0.3 /100WBC (0.0-0.0); PLATELET COUNT 294 10^3/UL (140-415); RED BLOOD COUNT 2.47 10^6/ul (4.20-5.40); RED CELL DISTRIBUTION WIDTH 14.5 % (11.5-14.5)
[2018-06-16] MEDS: DIPHENHYDRAMINE 25 MG CAP PO (20:00)
[2018-06-16] MEDS: INSULIN GLARGINE [LANTus] (100 UNITS/ML) SYG SC (20:23)
[2018-06-16] MEDS: traZODone 50 MG TAB PO (21:39)
[2018-06-17] MEDS: ACCU-CHEK XX (02:00)
[2018-06-17] MEDS: PANTOPRAZOLE (EC) 40 MG TAB PO (05:51)
[2018-06-17 06:00] LABS: HEMATOCRIT 21.1 % (37.0-47.0)
[2018-06-17 06:06] LABS: HEMOGLOBIN 6.7 g/dl (12.0-16.0)
[2018-06-17] MEDS: SOD CHLORIDE 0.9% 1,000 ML IV ×2 (06:37→18:47)
[2018-06-17] MEDS: INSULIN ASPART [NOVOLOG] 3 ML PEN SC ×4 (07:55→21:00)
[2018-06-17] MEDS: CYANOCOBALAMIN 1000 MCG INJ IM (08:28)
[2018-06-17] MEDS: DILTIAZEM (CD) 120 MG CAP PO (08:28)
[2018-06-17] MEDS: DULOXETINE 30 MG CAP DR PO ×2 (08:28→20:38)
[2018-06-17] MEDS: DOCUSATE SODIUM 100 MG CAP PO ×2 (08:29→20:46)
[2018-06-17 09:27] LABS: IMMEDIATE SPIN CROSSMATCH 1 7
[2018-06-17] MEDS: SOD CHLORIDE 0.9% 250 ML IV* (09:30)
[2018-06-17] MEDS: ACETAMINOPHEN 325 MG TAB PO (11:25)
[2018-06-17] MEDS ORDERED: SOD CHLORIDE 0.9% 250 ML IV* (11:42)
[2018-06-17] MEDS: PANTOPRAZOLE IV 80 MG in SOD CHLORIDE 0.9% 100 ML IV (13:38)
[2018-06-17] MEDS: DIPHENHYDRAMINE 25 MG CAP PO (14:03)
[2018-06-17] MEDS: LACTOBACILLUS RHAMNOSUS CAP PO ×2 (15:29→20:38)
[2018-06-17 18:47] LABS: HEMATOCRIT 27.2 % (37.0-47.0); HEMOGLOBIN 8.7 g/dl (12.0-16.0)
[2018-06-17] MEDS: INSULIN GLARGINE [LANTus] (100 UNITS/ML) SYG SC (20:46)
[2018-06-17] MEDS: DIPHENHYDRAMINE 50 MG CAP PO (20:47)
[2018-06-17] MEDS: traZODone 50 MG TAB PO (22:04)
[2018-06-18] MEDS: PANTOPRAZOLE IV 80 MG in SOD CHLORIDE 0.9% 100 ML IV ×3 (01:23→20:11)
[2018-06-18] MEDS: ACCU-CHEK XX (02:00)
[2018-06-18 05:31] LABS: ADD MAN DIFF? NO
[2018-06-18 05:53] LABS: WHITE BLOOD COUNT 4.9 10^3/ul (4.8-10.8)
[2018-06-18 05:53] LABS: BASOPHILS % 0.6 % (0.0-2.0); EOSINOPHILS # 0.2 10^3/ul (0.0-0.5); EOSINOPHILS % 3.9 % (0.0-7.0); HEMATOCRIT 27.9 % (37.0-47.0); HEMOGLOBIN 8.8 g/dl (12.0-16.0); LYMPHOCYTES # 0.8 10^3/ul (0.8-2.9); LYMPHOCYTES % 16.7 % (15.0-51.0); MEAN CORPUSCULAR HEMOGLOBIN 27.9 pg (29.0-33.0); MEAN CORPUSCULAR HGB CONC 31.5 g/dl (32.0-37.0); MEAN CORPUSCULAR VOLUME 88.6 fl (82.0-101.0); MONOCYTE # 0.4 10^3/ul (0.3-0.9); MONOCYTES % 9.1 % (0.0-11.0); NEUTROPHIL # 3.3 10^3/ul (1.6-7.5); NEUTROPHILS % 68.5 % (39.0-77.0); PLATELET COUNT 278 10^3/UL (140-415); RED BLOOD COUNT 3.15 10^6/ul (4.20-5.40); RED CELL DISTRIBUTION WIDTH 17.5 % (11.5-14.5)
[2018-06-18 06:06] LABS: INR 0.92; PARTIAL THROMBOPLASTIN TIME 33.2 Sec (23.0-35.0); PROTIME 12.5 Sec (11.9-14.9)
[2018-06-18 06:13] LABS: ANION GAP 5 (5-13); BLOOD UREA NITROGEN 28 mg/dl (7-20); CALCIUM 8.6 mg/dl (8.4-10.2); CARBON DIOXIDE 26 mmol/L (21-31); CHLORIDE 113 mmol/L (97-110); CREATININE 0.93 mg/dl (0.44-1.00); GLUCOSE 87 mg/dl (70-220); POTASSIUM 3.1 mmol/L (3.5-5.1); SODIUM 144 mmol/L (135-144)
[2018-06-18] MEDS: INSULIN ASPART [NOVOLOG] 3 ML PEN SC ×4 (07:55→22:06)
[2018-06-18] MEDS: DOCUSATE SODIUM 100 MG CAP PO ×2 (08:23→21:00)
[2018-06-18] MEDS: CYANOCOBALAMIN 1000 MCG INJ IM (08:23)
[2018-06-18] MEDS: DILTIAZEM (CD) 120 MG CAP PO (08:23)
[2018-06-18] MEDS: DULOXETINE 30 MG CAP DR PO ×2 (08:24→20:11)
[2018-06-18] MEDS: LACTOBACILLUS RHAMNOSUS CAP PO ×2 (08:24→20:10)
[2018-06-18] MEDS: POTASSIUM CHLORIDE (SR) 20 MEQ TAB PO (09:22)
[2018-06-18 14:37] LABS: CREATININE, RANDOM URINE 36 mg/dL (20-275); MICROALBUMIN <0.2 mg/dL; MICROALBUMIN/CREATININE RATIO NOTE (<30)
[2018-06-18] MEDS: PROPOFOL 20 ML (17:09)
[2018-06-18 18:48] LABS: HEMATOCRIT 28.7 % (37.0-47.0); HEMOGLOBIN 9.1 g/dl (12.0-16.0)
[2018-06-18] MEDS: SOD CHLORIDE 0.9% 1,000 ML IV (19:09)
[2018-06-18] MEDS: ACETAMINOPHEN 325 MG TAB PO (19:12)
[2018-06-18] MEDS: DIPHENHYDRAMINE 50 MG CAP PO (20:14)
[2018-06-18] MEDS: INSULIN GLARGINE [LANTus] (100 UNITS/ML) SYG SC (20:36)
[2018-06-18] MEDS: traZODone 50 MG TAB PO (22:06)
[2018-06-19] MEDS: ACCU-CHEK XX (02:00)
[2018-06-19] MEDS: PANTOPRAZOLE IV 80 MG in SOD CHLORIDE 0.9% 100 ML IV (05:41)
[2018-06-19 06:26] LABS: ADD MAN DIFF? NO
[2018-06-19 06:32] LABS: BASOPHILS % 0.6 % (0.0-2.0); EOSINOPHILS # 0.1 10^3/ul (0.0-0.5); EOSINOPHILS % 2.5 % (0.0-7.0); HEMATOCRIT 29.6 % (37.0-47.0); HEMOGLOBIN 9.4 g/dl (12.0-16.0); LYMPHOCYTES # 0.6 10^3/ul (0.8-2.9); LYMPHOCYTES % 12.9 % (15.0-51.0); MEAN CORPUSCULAR HEMOGLOBIN 28.6 pg (29.0-33.0); MEAN CORPUSCULAR HGB CONC 31.8 g/dl (32.0-37.0); MEAN PLATELET VOLUME 9.9 fl (7.4-10.4); MONOCYTE # 0.4 10^3/ul (0.3-0.9); MONOCYTES % 7.5 % (0.0-11.0); NEUTROPHIL # 3.6 10^3/ul (1.6-7.5); NEUTROPHILS % 75.3 % (39.0-77.0); PLATELET COUNT 320 10^3/UL (140-415); RED BLOOD COUNT 3.29 10^6/ul (4.20-5.40); RED CELL DISTRIBUTION WIDTH 17.9 % (11.5-14.5)
[2018-06-19 06:32] LABS: WHITE BLOOD COUNT 4.8 10^3/ul (4.8-10.8)
[2018-06-19 07:03] LABS: ANION GAP 4 (5-13); BLOOD UREA NITROGEN 17 mg/dl (7-20); CALCIUM 8.9 mg/dl (8.4-10.2); CARBON DIOXIDE 25 mmol/L (21-31); CHLORIDE 115 mmol/L (97-110); CREATININE 0.77 mg/dl (0.44-1.00); GLUCOSE 88 mg/dl (70-220); MAGNESIUM 1.7 mg/dl (1.7-2.5); PHOSPHORUS 3.3 mg/dl (2.5-4.9); POTASSIUM 3.9 mmol/L (3.5-5.1); SODIUM 144 mmol/L (135-144)
[2018-06-19] MEDS: INSULIN ASPART [NOVOLOG] 3 ML PEN SC ×3 (07:55→16:55)
[2018-06-19] MEDS: DOCUSATE SODIUM 100 MG CAP PO (08:06)
[2018-06-19] MEDS: LACTOBACILLUS RHAMNOSUS CAP PO (08:06)
[2018-06-19] MEDS: DULOXETINE 30 MG CAP DR PO (08:06)
[2018-06-19] MEDS: DILTIAZEM (CD) 120 MG CAP PO (08:07)
[2018-06-19] MEDS: DIPHENHYDRAMINE 50 MG CAP PO (10:35)
[2018-06-19] MEDS: SUCRALFATE (100 MG/ML) 10ML CUP PO ×2 (14:43→16:54)
[2018-06-19] MEDS: ACETAMINOPHEN 325 MG TAB PO (16:26)
[2018-06-19] MEDS ORDERED: PANTOPRAZOLE 40 MG INJ IV (18:00)
== END 2018-06-19 17:35 | DRG 378 ==
LOC: E/R 11:54 → TEL 13:16
PROVIDERS: Pediatrics
PROC: 0W3P8ZZ Control Bleeding in Gastrointestinal Tract, Via Natural or Artificial Opening Endoscopic (ICD-10-PCS; principal; 2018-06-18 15:00)
PROC: 30233N1 Transfusion of Nonautologous Red Blood Cells into Peripheral Vein, Percutaneous Approach (ICD-10-PCS; 2018-06-18 15:00)
PROC: 30233N1 Transfusion of Nonautologous Red Blood Cells into Peripheral Vein, Percutaneous Approach (ICD-10-PCS; 2018-06-18 15:00)
DX: K55.21 Angiodysplasia of colon with hemorrhage (principal); N17.9 Acute kidney failure, unspecified; D62 Acute posthemorrhagic anemia; D68.9 Coagulation defect, unspecified; E11.22 Type 2 diabetes mellitus with diabetic chronic kidney disease; I27.20 Pulmonary hypertension, unspecified; J44.9 Chronic obstructive pulmonary disease, unspecified; K92.1 Melena; E11.9 Type 2 diabetes mellitus without complications; M19.90 Unspecified osteoarthritis, unspecified site; I25.10 Atherosclerotic heart disease of native coronary artery without angina pectoris; E55.9 Vitamin D deficiency, unspecified; F41.9 Anxiety disorder, unspecified; F32.9 Major depressive disorder, single episode, unspecified; E87.6 Hypokalemia; E53.8 Deficiency of other specified B group vitamins; I12.9 Hypertensive chronic kidney disease with stage 1 through stage 4 chronic kidney disease, or unspecified chronic kidney disease; N18.9 Chronic kidney disease, unspecified; K58.2 Mixed irritable bowel syndrome; K44.9 Diaphragmatic hernia without obstruction or gangrene; Z96.642 Presence of left artificial hip joint; Z79.4 Long term (current) use of insulin
CPT/HCPCS: 36415; 36430; 71045; 74176; 76775; 80048; 80053; 80061; 81003; 82043; 82270; 82378; 82550; 82553; 82607; 82652; 82668; 82728; 82746; 82784; 82962; 83010; 83036; 83540; 83615; 83735; 83880; 84100; 84155; 84165; 84300; 84484; 85014; 85018; 85025; 85045; 85384; 85610; 85651; 85730; 86320; 86850; 86900; 86901; 86920; 90686; 93005; 93306; 97116; 97161; 97530; 99285-25

== ENCOUNTER 2018-07-07 16:12 | Observation (INO) | payer MEDICARE, OTHER ==
[2018-07-07] MEDS: morphine 2 MG INJ IV (16:30)
[2018-07-07] MEDS: NITROGLYCERIN 2% 1 GM OINT PKT TD (16:31)
[2018-07-07] MEDS: ONDANSETRON 4 MG INJ IV (16:31)
[2018-07-07 16:40] LABS: ADD MAN DIFF? NO
[2018-07-07 16:42] LABS: BASOPHILS % 0.4 % (0.0-2.0); EOSINOPHILS # 0.1 10^3/ul (0.0-0.5); EOSINOPHILS % 1.4 % (0.0-7.0); HEMATOCRIT 28.2 % (37.0-47.0); HEMOGLOBIN 8.7 g/dl (12.0-16.0); LYMPHOCYTES # 0.9 10^3/ul (0.8-2.9); LYMPHOCYTES % 15.1 % (15.0-51.0); MEAN CORPUSCULAR HEMOGLOBIN 27.1 pg (29.0-33.0); MEAN CORPUSCULAR HGB CONC 30.9 g/dl (32.0-37.0); MEAN CORPUSCULAR VOLUME 87.9 fl (82.0-101.0); MEAN PLATELET VOLUME 9.5 fl (7.4-10.4); MONOCYTE # 0.4 10^3/ul (0.3-0.9); MONOCYTES % 7.7 % (0.0-11.0); NEUTROPHIL # 4.2 10^3/ul (1.6-7.5); NEUTROPHILS % 74.7 % (39.0-77.0); PLATELET COUNT 386 10^3/UL (140-415); RED BLOOD COUNT 3.21 10^6/ul (4.20-5.40); RED CELL DISTRIBUTION WIDTH 16.2 % (11.5-14.5)
[2018-07-07 16:42] LABS: WHITE BLOOD COUNT 5.6 10^3/ul (4.8-10.8)
[2018-07-07 16:58] LABS: ANION GAP 8 (5-13); BLOOD UREA NITROGEN 30 mg/dl (7-20); CALCIUM 9.4 mg/dl (8.4-10.2); CARBON DIOXIDE 26 mmol/L (21-31); CHLORIDE 99 mmol/L (97-110); CREATININE 1.05 mg/dl (0.44-1.00); GLUCOSE 139 mg/dl (70-220); POTASSIUM 4.4 mmol/L (3.5-5.1); SODIUM 133 mmol/L (135-144)
[2018-07-07 17:09] LABS: TROPONIN-I < 0.012 ng/ml (0.000-0.120)
[2018-07-07] MEDS ORDERED: ACETAMINOPHEN 325 MG TAB PO (18:00)
[2018-07-07] MEDS ORDERED: ONDANSETRON 4 MG INJ IV ×2 (18:00→19:30)
[2018-07-07] MEDS ORDERED: DOCUSATE SODIUM 100 MG CAP PO (19:30)
[2018-07-07] MEDS ORDERED: NACL 0.9% 3 ML SYG IV (19:30)
[2018-07-07] MEDS ORDERED: NITROGLYCERIN (SL) 0.4 MG TAB SL (19:30)
[2018-07-07] MEDS ORDERED: ALBUTEROL/IPRATROPIUM (NEB) 3 ML AMP HHN (19:30)
[2018-07-07] MEDS ORDERED: hydrALAzine 20 MG INJ IV (19:30)
[2018-07-07] MEDS ORDERED: MAGNESIUM HYDROXIDE 30ML CUP PO (19:30)
[2018-07-07] MEDS ORDERED: LORAZEPAM 2 MG INJ IV (19:30)
[2018-07-07] MEDS ORDERED: morphine 2 MG INJ IV (19:30)
[2018-07-07] MEDS ORDERED: HYDROCODONE/APAP (5/325) TAB PO (19:30)
[2018-07-07 20:10] LABS: CREATINE KINASE 67 IU/L (23-200)
[2018-07-07 20:23] LABS: CK INDEX 3.8; CK-MB 2.53 ng/ml (0.0-2.4); TROPONIN-I < 0.012 ng/ml (0.000-0.120)
[2018-07-07 20:43] LABS: FREE T4 (FREE THYROXINE) 1.02 ng/dl (0.85-1.93)
[2018-07-07] MEDS ORDERED: DIPHENHYDRAMINE 50 MG INJ IV (21:30)
[2018-07-07 22:26] LABS: CREATINE KINASE 63 IU/L (23-200)
[2018-07-07 22:40] LABS: CK INDEX 3.6; CK-MB 2.26 ng/ml (0.0-2.4); TROPONIN-I 0.025 ng/ml (0.000-0.120)
[2018-07-08 01:58] LABS: CREATINE KINASE 77 IU/L (23-200)
[2018-07-08 02:11] LABS: CK INDEX 3.4; CK-MB 2.61 ng/ml (0.0-2.4); TROPONIN-I 0.018 ng/ml (0.000-0.120)
[2018-07-08] MEDS: PANTOPRAZOLE (EC) 40 MG TAB PO (06:00)
[2018-07-08 08:11] LABS: ADD MAN DIFF? NO
[2018-07-08 08:16] LABS: WHITE BLOOD COUNT 4.7 10^3/ul (4.8-10.8)
[2018-07-08 08:16] LABS: BASOPHILS % 0.6 % (0.0-2.0); EOSINOPHILS # 0.1 10^3/ul (0.0-0.5); EOSINOPHILS % 1.9 % (0.0-7.0); HEMOGLOBIN 9.4 g/dl (12.0-16.0); LYMPHOCYTES # 0.7 10^3/ul (0.8-2.9); LYMPHOCYTES % 14.3 % (15.0-51.0); MEAN CORPUSCULAR HEMOGLOBIN 26.8 pg (29.0-33.0); MEAN CORPUSCULAR HGB CONC 30.3 g/dl (32.0-37.0); MEAN CORPUSCULAR VOLUME 88.3 fl (82.0-101.0); MEAN PLATELET VOLUME 9.8 fl (7.4-10.4); MONOCYTE # 0.4 10^3/ul (0.3-0.9); MONOCYTES % 7.5 % (0.0-11.0); NEUTROPHIL # 3.5 10^3/ul (1.6-7.5); NEUTROPHILS % 75.1 % (39.0-77.0); PLATELET COUNT 377 10^3/UL (140-415); RED BLOOD COUNT 3.51 10^6/ul (4.20-5.40); RED CELL DISTRIBUTION WIDTH 16.3 % (11.5-14.5)
[2018-07-08 08:24] LABS: HEMOGLOBIN A1C 5.6 % (0-5.9)
[2018-07-08] MEDS: DULOXETINE 30 MG CAP DR PO (08:38)
[2018-07-08] MEDS: ACETAMINOPHEN 325 MG TAB PO (08:38)
[2018-07-08 08:39] LABS: ANION GAP 7 (5-13); BLOOD UREA NITROGEN 24 mg/dl (7-20); CALCIUM 9.6 mg/dl (8.4-10.2); CARBON DIOXIDE 30 mmol/L (21-31); CHLORIDE 102 mmol/L (97-110); CHOL/HDL RATIO 3.1 RATIO; CHOLESTEROL 218 mg/dl (100-200); CREATININE 0.96 mg/dl (0.44-1.00); GLUCOSE 101 mg/dl (70-220); HDL CHOLESTEROL 70 mg/dl (33-92); LDL CHOLESTEROL,CALCULATED 132 mg/dl; MAGNESIUM 1.8 mg/dl (1.7-2.5); PHOSPHORUS 3.9 mg/dl (2.5-4.9); POTASSIUM 4.6 mmol/L (3.5-5.1); SODIUM 139 mmol/L (135-144); TRIGLYCERIDES 79 mg/dl (0-149)
[2018-07-08] MEDS: DILTIAZEM (CD) 120 MG CAP PO (08:39)
[2018-07-08] MEDS: SUCRALFATE (100 MG/ML) 10ML CUP PO ×3 (08:39→17:08)
[2018-07-08 08:50] LABS: TROPONIN-I 0.013 ng/ml (0.000-0.120)
[2018-07-08 09:22] LABS: CK INDEX 3.2; CREATINE KINASE 63 IU/L (23-200)
[2018-07-08] MEDS: traMADol 50 MG TAB PO (09:53)
[2018-07-08] MEDS: CARISOPRODOL 350 MG TAB PO (13:00)
[2018-07-08] MEDS ORDERED: traZODone 50 MG TAB PO (21:00)
== END 2018-07-08 18:34 ==
LOC: E/R 16:12 → 6WM 17:53
DX: R07.89 Other chest pain (principal); I10 Essential (primary) hypertension; K29.70 Gastritis, unspecified, without bleeding; K31.819 Angiodysplasia of stomach and duodenum without bleeding; D64.9 Anemia, unspecified; I27.20 Pulmonary hypertension, unspecified; E78.5 Hyperlipidemia, unspecified; F41.9 Anxiety disorder, unspecified; F32.9 Major depressive disorder, single episode, unspecified; E55.9 Vitamin D deficiency, unspecified; I25.10 Atherosclerotic heart disease of native coronary artery without angina pectoris; E11.9 Type 2 diabetes mellitus without complications; N17.9 Acute kidney failure, unspecified
CPT/HCPCS: 36415; 71045; 80048; 80061; 82550; 82553; 83036; 83735; 84100; 84439; 84443; 84484; 85025; 93005; 96374; 96375; 99285-25; G0378

== ENCOUNTER 2018-10-31 16:57 | Inpatient (IN) | payer MEDICARE, OTHER ==
[2018-10-31] MEDS: traMADol 50 MG TAB PO ×2 (17:47→22:36)
[2018-10-31 17:50] LABS: ABNORMAL IP MESSAGE 1
[2018-10-31 18:02] LABS: WHITE BLOOD COUNT 6.7 10^3/ul (4.8-10.8)
[2018-10-31 18:02] LABS: HEMATOCRIT 21.8 % (37.0-47.0); MEAN CORPUSCULAR HEMOGLOBIN 21.8 pg (29.0-33.0); MEAN CORPUSCULAR HGB CONC 28.4 g/dl (32.0-37.0); MEAN CORPUSCULAR VOLUME 76.5 fl (82.0-101.0); MEAN PLATELET VOLUME 9.9 fl (7.4-10.4); PLATELET COUNT 337 10^3/UL (140-415); RED BLOOD COUNT 2.85 10^6/ul (4.20-5.40); RED CELL DISTRIBUTION WIDTH 17.5 % (11.5-14.5)
[2018-10-31 18:09] LABS: ADD MAN DIFF? YES; HEMOGLOBIN 6.2 g/dl (12.0-16.0); POSITIVE DIFF @See below
[2018-10-31] MEDS: SOD CHLORIDE 0.9% 0 ML IV (18:09)
[2018-10-31 18:10] LABS: PATH REVIEW? YES
[2018-10-31 18:12] LABS: ALANINE AMINOTRANSFERASE 20 IU/L (13-69); ALKALINE PHOSPHATASE 82 IU/L (42-121); ANION GAP 7 (5-13); ASPARTATE AMINO TRANSFERASE 27 IU/L (15-46); BLOOD UREA NITROGEN 27 mg/dl (7-20); CALCIUM 8.9 mg/dl (8.4-10.2); CARBON DIOXIDE 23 mmol/L (21-31); CHLORIDE 110 mmol/L (97-110); CREATININE 1.17 mg/dl (0.44-1.00); GLUCOSE 114 mg/dl (70-220); POTASSIUM 4.7 mmol/L (3.5-5.1); SODIUM 140 mmol/L (135-144)
[2018-10-31 18:13] LABS: ALBUMIN 3.7 g/dl (3.3-4.9); ALBUMIN/GLOBULIN RATIO 1.27; BILIRUBIN,INDIRECT 0.2 mg/dl (0-1.1); BILIRUBIN,TOTAL 0.2 mg/dl (0.2-1.3); TOTAL PROTEIN 6.6 g/dl (6.1-8.1)
[2018-10-31 18:25] LABS: B-TYPE NATRIURETIC PEPTIDE 7610 PG/ML (0-450); TROPONIN-I 0.016 ng/ml (0.000-0.120)
[2018-10-31 19:30] LABS: ANISOCYTOSIS 1+ (0-0); LYMPHOCYTES #M 0.4 10^3/ul (0.8-2.9); LYMPHOCYTES % (M) 6 % (15-51); MICROCYTOSIS 1+ (0-0); MONOCYTE #M 0.3 10^3/ul (0.3-0.9); MONOCYTES % (M) 5 % (0-11); SEGMENTED NEUTROPHILS (M) % 89 % (39-77); SMUDGE%M 45 % (0-0)
[2018-10-31] MEDS ORDERED: ONDANSETRON 4 MG INJ IV ×2 (19:30→20:30)
[2018-10-31] MEDS ORDERED: ACETAMINOPHEN 325 MG TAB PO ×2 (19:30→20:30)
[2018-10-31] MEDS ORDERED: NACL 0.9% 3 ML SYG IV (20:30)
[2018-10-31] MEDS ORDERED: morphine 2 MG INJ IV (20:30)
[2018-10-31] MEDS ORDERED: FAMOTIDINE 20 MG INJ IV (21:00)
[2018-10-31] MEDS: FUROSEMIDE 40 MG INJ IV (23:20)
[2018-10-31] MEDS: FAMOTIDINE 20 MG INJ IV (23:21)
[2018-10-31 23:37] LABS: IMMEDIATE SPIN CROSSMATCH 1 2
[2018-11-01] MEDS: DULOXETINE 30 MG CAP DR PO ×3 (08:33→21:00)
[2018-11-01 10:26] LABS: ADD MAN DIFF? NO
[2018-11-01 10:32] LABS: BASOPHILS % 0.5 % (0.0-2.0); EOSINOPHILS # 0.1 10^3/ul (0.0-0.5); EOSINOPHILS % 1.4 % (0.0-7.0); HEMATOCRIT 34.4 % (37.0-47.0); HEMOGLOBIN 10.4 g/dl (12.0-16.0); LYMPHOCYTES # 0.8 10^3/ul (0.8-2.9); LYMPHOCYTES % 9.4 % (15.0-51.0); MEAN CORPUSCULAR HEMOGLOBIN 23.6 pg (29.0-33.0); MEAN CORPUSCULAR HGB CONC 30.2 g/dl (32.0-37.0); MEAN PLATELET VOLUME 10.1 fl (7.4-10.4); MONOCYTE # 0.6 10^3/ul (0.3-0.9); MONOCYTES % 7.6 % (0.0-11.0); NEUTROPHIL # 6.5 10^3/ul (1.6-7.5); NEUTROPHILS % 80.6 % (39.0-77.0); PLATELET COUNT 375 10^3/UL (140-415); RED BLOOD COUNT 4.41 10^6/ul (4.20-5.40); RED CELL DISTRIBUTION WIDTH 17.2 % (11.5-14.5)
[2018-11-01 10:46] LABS: CREATINE KINASE 126 IU/L (23-200)
[2018-11-01 10:48] LABS: IRON 195 ug/dl (35-150)
[2018-11-01 10:52] LABS: ALANINE AMINOTRANSFERASE 21 IU/L (13-69); ALBUMIN 4.2 g/dl (3.3-4.9); ALKALINE PHOSPHATASE 97 IU/L (42-121); ANION GAP 9 (5-13); ASPARTATE AMINO TRANSFERASE 34 IU/L (15-46); BILIRUBIN,INDIRECT 0.6 mg/dl (0-1.1); BILIRUBIN,TOTAL 0.6 mg/dl (0.2-1.3); BLOOD UREA NITROGEN 25 mg/dl (7-20); CALCIUM 9.5 mg/dl (8.4-10.2); CARBON DIOXIDE 27 mmol/L (21-31); CHLORIDE 107 mmol/L (97-110); CREATININE 1.17 mg/dl (0.44-1.00); GLUCOSE 101 mg/dl (70-220); MAGNESIUM 1.9 mg/dl (1.7-2.5); POTASSIUM 4.4 mmol/L (3.5-5.1); SODIUM 143 mmol/L (135-144); TOTAL PROTEIN 7.7 g/dl (6.1-8.1)
[2018-11-01 10:58] LABS: % IRON SATURATION 55 % SAT (22-52); TOTAL IRON BINDING CAPACITY 355 ug/dl (241-421)
[2018-11-01 10:58] LABS: HEMOGLOBIN A1C 5.5 % (0-5.9)
[2018-11-01 10:59] LABS: CK INDEX 2.5; TROPONIN-I 0.061 ng/ml (0.000-0.120)
[2018-11-01] MEDS ORDERED: DOCUSATE SODIUM 100 MG CAP PO (14:00)
[2018-11-01] MEDS: SOD FERRIC GLUC COMPLX 125 MG in SOD CHLORIDE 0.9% 100 ML IVPB (14:41)
[2018-11-01] MEDS: PSYLLIUM 28% PACKET PO (14:41)
[2018-11-01] MEDS: CHOLECALCIFEROL 1,000 UNIT TAB PO (14:42)
[2018-11-01 15:23] LABS: CREATINE KINASE 101 IU/L (23-200)
[2018-11-01 15:35] LABS: CK INDEX 2.9; CK-MB 2.94 ng/ml (0.0-2.4)
[2018-11-01] MEDS: traMADol 50 MG TAB PO (17:23)
[2018-11-01] MEDS: FAMOTIDINE 20 MG TAB PO (21:00)
[2018-11-02 05:49] LABS: ADD MAN DIFF? NO
[2018-11-02 05:53] LABS: WHITE BLOOD COUNT 4.2 10^3/ul (4.8-10.8)
[2018-11-02 05:53] LABS: BASOPHILS % 0.9 % (0.0-2.0); EOSINOPHILS # 0.2 10^3/ul (0.0-0.5); EOSINOPHILS % 4.7 % (0.0-7.0); HEMATOCRIT 32.7 % (37.0-47.0); HEMOGLOBIN 9.7 g/dl (12.0-16.0); LYMPHOCYTES # 0.7 10^3/ul (0.8-2.9); LYMPHOCYTES % 16.5 % (15.0-51.0); MEAN CORPUSCULAR HEMOGLOBIN 23.5 pg (29.0-33.0); MEAN CORPUSCULAR HGB CONC 29.7 g/dl (32.0-37.0); MEAN CORPUSCULAR VOLUME 79.2 fl (82.0-101.0); MEAN PLATELET VOLUME 9.6 fl (7.4-10.4); MONOCYTE # 0.5 10^3/ul (0.3-0.9); NEUTROPHIL # 2.8 10^3/ul (1.6-7.5); NEUTROPHILS % 65.4 % (39.0-77.0); PLATELET COUNT 333 10^3/UL (140-415); RED BLOOD COUNT 4.13 10^6/ul (4.20-5.40); RED CELL DISTRIBUTION WIDTH 17.5 % (11.5-14.5)
[2018-11-02 06:16] LABS: ANION GAP 6 (5-13); BLOOD UREA NITROGEN 16 mg/dl (7-20); CALCIUM 9.2 mg/dl (8.4-10.2); CARBON DIOXIDE 26 mmol/L (21-31); CHLORIDE 111 mmol/L (97-110); CREATININE 0.95 mg/dl (0.44-1.00); GLUCOSE 88 mg/dl (70-220); POTASSIUM 3.9 mmol/L (3.5-5.1); SODIUM 143 mmol/L (135-144)
[2018-11-02] MEDS: DULOXETINE 30 MG CAP DR PO ×2 (08:37→20:26)
[2018-11-02] MEDS: CHOLECALCIFEROL 1,000 UNIT TAB PO (08:37)
[2018-11-02] MEDS: PSYLLIUM 28% PACKET PO (08:37)
[2018-11-02] MEDS: traMADol 50 MG TAB PO ×2 (09:24→21:51)
[2018-11-02] MEDS: SOD FERRIC GLUC COMPLX 125 MG in SOD CHLORIDE 0.9% 100 ML IVPB (12:28)
[2018-11-02] MEDS: hydrOXYzine HCL 25 MG TAB PO ×2 (12:28→20:25)
[2018-11-02] MEDS: LORAZEPAM 0.5 MG TAB PO (20:25)
[2018-11-02] MEDS: FAMOTIDINE 20 MG TAB PO (20:25)
[2018-11-03] MEDS: CHOLECALCIFEROL 1,000 UNIT TAB PO (08:13)
[2018-11-03] MEDS: PSYLLIUM 28% PACKET PO (08:13)
[2018-11-03] MEDS: DULOXETINE 30 MG CAP DR PO ×2 (08:13→20:46)
[2018-11-03] MEDS: traMADol 50 MG TAB PO ×2 (11:03→20:46)
[2018-11-03] MEDS: SOD FERRIC GLUC COMPLX 125 MG in SOD CHLORIDE 0.9% 100 ML IVPB (13:23)
[2018-11-03] MEDS: FAMOTIDINE 20 MG TAB PO (20:47)
[2018-11-03] MEDS: LORAZEPAM 0.5 MG TAB PO (20:47)
[2018-11-03] MEDS: hydrOXYzine HCL 25 MG TAB PO (20:47)
[2018-11-04 06:28] LABS: ANION GAP 7 (5-13); BLOOD UREA NITROGEN 25 mg/dl (7-20); CALCIUM 9.7 mg/dl (8.4-10.2); CARBON DIOXIDE 24 mmol/L (21-31); CHLORIDE 109 mmol/L (97-110); CREATININE 0.93 mg/dl (0.44-1.00); GLUCOSE 99 mg/dl (70-220); MAGNESIUM 1.8 mg/dl (1.7-2.5); POTASSIUM 4.5 mmol/L (3.5-5.1); SODIUM 140 mmol/L (135-144)
[2018-11-04] MEDS: DULOXETINE 30 MG CAP DR PO ×2 (08:07→20:32)
[2018-11-04] MEDS: CHOLECALCIFEROL 1,000 UNIT TAB PO (08:07)
[2018-11-04] MEDS: PSYLLIUM 28% PACKET PO (08:07)
[2018-11-04] MEDS: BISACODYL 10 MG SUPP PR (11:23)
[2018-11-04] MEDS: traMADol 50 MG TAB PO (13:19)
[2018-11-04 15:40] LABS: OCCULT BLOOD STOOL NEGATIVE (NEGATIVE)
[2018-11-04] MEDS: SENNA TAB PO (20:32)
[2018-11-04] MEDS: FAMOTIDINE 20 MG TAB PO (20:32)
[2018-11-05] MEDS: DULOXETINE 30 MG CAP DR PO ×2 (08:49→20:21)
[2018-11-05] MEDS: CHOLECALCIFEROL 1,000 UNIT TAB PO (08:49)
[2018-11-05] MEDS: SENNA TAB PO ×2 (08:49→20:21)
[2018-11-05] MEDS: PSYLLIUM 28% PACKET PO (08:49)
[2018-11-05] MEDS ORDERED: GUAIFENESIN/DM 5ML CUP PO (11:00)
[2018-11-05] MEDS: GUAIFENESIN/DM 5ML CUP PO (11:43)
[2018-11-05] MEDS: FAMOTIDINE 20 MG TAB PO (20:21)
[2018-11-06] MEDS: PSYLLIUM 28% PACKET PO (08:43)
[2018-11-06] MEDS: SENNA TAB PO (08:44)
[2018-11-06] MEDS: DULOXETINE 30 MG CAP DR PO (08:44)
[2018-11-06] MEDS: CHOLECALCIFEROL 1,000 UNIT TAB PO (08:44)
== END 2018-11-06 16:46 | DRG 378 ==
LOC: 6WM 11-01 17:18 → E/R 16:57 → PP2 11-05 16:27 → 6WM 19:16
PROC: 30233N1 Transfusion of Nonautologous Red Blood Cells into Peripheral Vein, Percutaneous Approach (ICD-10-PCS; principal; 2018-10-31)
DX: K92.1 Melena (principal); N17.9 Acute kidney failure, unspecified; I12.0 Hypertensive chronic kidney disease with stage 5 chronic kidney disease or end stage renal disease; E11.8 Type 2 diabetes mellitus with unspecified complications; I27.20 Pulmonary hypertension, unspecified; D50.9 Iron deficiency anemia, unspecified; K55.20 Angiodysplasia of colon without hemorrhage; K59.09 Other constipation; M79.7 Fibromyalgia; F32.9 Major depressive disorder, single episode, unspecified; F41.9 Anxiety disorder, unspecified; I25.10 Atherosclerotic heart disease of native coronary artery without angina pectoris; E78.5 Hyperlipidemia, unspecified; J45.909 Unspecified asthma, uncomplicated; M19.90 Unspecified osteoarthritis, unspecified site; K29.70 Gastritis, unspecified, without bleeding; E55.9 Vitamin D deficiency, unspecified; N18.9 Chronic kidney disease, unspecified; M25.512 Pain in left shoulder; M25.511 Pain in right shoulder
CPT/HCPCS: 36430; 71045; 80048; 80053; 82270; 82550; 82553; 83036; 83540; 83735; 83880; 84443; 84484; 85025; 86850; 86900; 86901; 86920; 93005; 93306; 97161; 99285-25